=== PATIENT | female | born 1950 | race Caucasian/White ===

== ENCOUNTER → 2024-05-26 14:41 | Outpatient (REF) | payer MEDICARE, SELFPAY | LOC: HWRAD 14:41 | PROVIDERS: ATTENDING PHYSICIAN Student in an Organized Health Care Education/Training Program | DX: R53.1 Weakness (principal); R42 Dizziness and giddiness | CPT/HCPCS: 70450 ==

== ENCOUNTER 2024-05-28 17:33 | Inpatient (IN) | payer MEDICARE, SELFPAY ==
[2024-05-28] VITALS (9 sets, daily range): BP systolic 126–164; BP diastolic 55–121; BMI 25.6
[2024-05-28 14:24] LABS: % Basophils 0.5 % (0-2); % Eosinophils 5.5 % (0-6); % Immature Granulocytes 0.3 % (0-0.5); % Lymphocytes 26.3 % (20.5-51.1); % Monocytes 9.3 % (1.7-9.3); % Neutrophils 58.1 % (42.2-75.2); Absolute Eosinophils 0.4 10^3/uL (0-0.7); Absolute Lymphocytes 1.7 10^3/uL (1.2-3.4); Absolute Monocytes 0.6 10^3/uL (0.1-0.6); Absolute Neutrophils 3.8 10^3/uL (1.4-6.5); Hematocrit 46.4 % (37.0-47.0); Hemoglobin 15.2 g/dL (12.0-16.0); Mean Corp Hgb Conc. 32.8 g/dL (33.0-37.0); Mean Corpuscular Hgb 27.7 pg (27.0-31.0); Mean Corpuscular Volume 84.5 fL (81.0-99.0); Mean Platelet Volume 10.1 fL (7.4-10.4); Nucleated Red Blood Cells % 0 %; Platelet Count 225 10^3/uL (130-400); Red Blood Cell Count 5.49 10^6/uL (4.20-5.40); Red Cell Dist. Width 13.2 % (11.5-14.5); White Blood Cell Count 6.6 10^3/uL (4.8-10.8)
[2024-05-28 14:27] LABS: INR 0.87; PT 12.3 Sec (11.4-14.6)
[2024-05-28 14:54] LABS: Alkaline Phosphatase 73 U/L (38-126); Blood Urea Nitrogen 23 mg/dl (7-17); Calcium 10.2 mg/dl (8.4-10.2); Carbon Dioxide 28 mmol/L (22-30); Chloride 105 mmol/L (98-107); Estimated Creatinine Clearance 36 ml/min; Glucose 104 mg/dl (70-99); Potassium 4.5 mmol/L (3.5-5.1); Sodium 141 mmol/L (135-145); eGFR 53.06
[2024-05-28 14:55] LABS: ALT (SGPT) 13 U/L (0-35); AST (SGOT) 20 U/L (14-36); Albumin 4.6 g/dl (3.5-5.0); Total Bilirubin 0.6 mg/dl (0.2-1.3); Total Protein 7.1 g/dl (6.3-8.2)
--- NOTE | 2024-05-28 15:46 | ED.GENMED ---
History of Present Illness
General
Chief Complaint: Numbness
Time Seen by Provider: 05/28/24 13:48
History of Present Illness
History of Present Illness:
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 The patient notes that she had right arm weakness as
well as right leg weakness 5 days ago that resolved in under 24 hours. She followed up on Sunday with her primary care physician who sent her for outpatient CT scan of the head, which was unremarkable, as well as a carotid Doppler study. The
carotid Doppler revealed significant high-grade stenosis of the left common carotid as well as greater than 70% stenosis of the right mid internal carotid. She was then directed to come to the emergency department. Has not had any further right
sided extremity symptoms. No recent fevers or chills. She has been on baby aspirin since this event this weekend as recommended by her primary care physician but is not currently on anticoagulants or other antiplatelets.
Past History
Past History
ED Past Medical History: Hypothyroidism and Other (Patient has a history of oral pharyngeal tongue cancer. )
ED Past Surgical History: Other (Cancer surgery for tongue cancer. )
Review of Systems
Review of Systems
Allergies reviewed?: Yes
All Other Systems: ROS reviewed and negative except as documented in HPI and ROS
Phy Exam
Physical Exam
Physical Exam:
GEN: Well appearing, NAD, WDWN
HEENT: Oral mucosa moist, no scleral icterus, no nasal congestion. Deformity of the right mandible and proximal right neck consistent with prior major head and neck oncologic surgery
Cardiac: Regular rate
Lung: No respiratory distress, no tachypnea
MSK: No gross deformity or injuries
Skin: Good color, no pallor or jaundice, no rashes
Neuro: AO x3; CN II-XII grossly intact. BUE strength 5/5 in all freeman, sensation intact and symmetric. BLE strength 5/5 in all freeman, sensation intact and symmetric
Psych: Calm, cooperative
Course
Orders/Labs/Results
Orders:
Orders
05/28/24 14:08
Electrocardiogram (*1) Urgent
Reason for Study: TIA/Stroke
CT Head & Neck Angio W/wo IV Urgent
Comment:
Reason For Exam: carotid stenosis/TIA
EKG- Treatment ONCE
05/28/24 14:13
Complete Blood Count/With Diff Urgent
Comprehensive Metabolic Panel Urgent
Prothrombin Time Urgent
Abnormal Lab Results
05/28/24
14:13
RBC 5.49 H 10^6/uL
(4.20-5.40)
MCHC 32.8 L g/dL
(33.0-37.0)
BUN 23 H mg/dl
(7-17)
Creatinine 1.1 H mg/dL
(0.6-1.0)
Glucose 104 H mg/dl
(70-99)
05/28/24 14:13
05/28/24 14:13
Vital Signs
Initial and Last Documented VS:
Initial Vital Signs
Temp Pulse Resp BP Pulse Ox
97.6 F 72 16 139/85 98
05/28/24 13:29 05/28/24 13:29 05/28/24 13:29 05/28/24 13:29 05/28/24 13:29
Last Documented Vital Signs
Temp Pulse Resp BP Pulse Ox
97.6 F 76 13 127/55 94
05/28/24 13:29 05/28/24 15:00 05/28/24 15:00 05/28/24 15:00 05/28/24 15:00
MDM/Problems Addressed
MDM/Problems Addressed:
73-year-old female presents with outpatient study showing carotid stenosis and a previous TIA likely driven by this. She was sent for CT angiogram for further diagnostic clarity. Case was discussed with vascular surgery who will see the patient in
the ED as well as neurology, neurology recommends holding antiplatelets at this point pending inpatient MRI. Will be admitted to the hospitalist service
*Critical Care Note
Total Time (30-74mins, 75-104mins- exclusive of procedures): Not Applicable
ED Attending Note
-
Portions of this chart may have been created with voice recognition software.� Occasional wrong word or��sound alike� substitutions may have occurred due to the inherent limitations of voice recognition software.
Discharge Plan
Departure
Patient Disposition: Admit
Date of Disposition: 05/28/24
Time of Disposition: 16:35
Admit to: Med/Surg
Presentation/result/management discussed w/ accepting MD/DO: Hospitalist
Discharge Problem:
Transient ischemic attack (TIA), Carotid artery stenosis
Prescriptions:
No Action
levothyroxine 100 MCG tablet
100 mcg PO DAILY
Referrals:
UNKNOWN - PT DOES,NOT KNOW [Family Provider] -
Interventions
Interventions:
*Risk Screen - Suicide Last Done: 05/28/24 13:59
*General Assessment Last Done: 05/28/24 13:59
*Neglect/Abuse Screening Last Done: 05/28/24 13:59
*ED- Fall Risk Assessment Last Done: 05/28/24 13:59
*ED COVID-19 Vaccine History Last Done: 05/28/24 13:59
ED- Neurological Assessment Last Done: 05/28/24 14:07
Discharge Date and Time
Print Language: PASHTO
--- NOTE | 2024-05-28 16:46 | HPS.HSE ---
Family Physician
-
Family Physician: NOT KNOW UNKNOWN - PT DOES
Chief Complaint
-
abnormal out patient testing
History of Present Illness
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 The
patient notes that she had right arm weakness as well as right leg weakness 5 days ago that resolved in under 24 hours. She followed up on Sunday with her primary care physician who sent her for outpatient CT scan of the head, which was
unremarkable, as well as a carotid Doppler study. The carotid Doppler revealed significant high-grade stenosis of the left common carotid as well as greater than 70% stenosis of the right mid internal carotid. She was then directed to come to the
emergency department. Has not had any further right sided extremity symptoms. No recent fevers or chills. She has been on baby aspirin since this event this weekend as recommended by her primary care physician but is not currently on
anticoagulants or other antiplatelets.
Medical History
Past Medical History
Past Medical History: Reports Other
Additional Past Medical History:
CKD IIIb
hypothyroidism
hypercholesterolemia
DM II
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
Past Surgical History: Reports Other
Additional Past Surgical History:
cholecystectomy
resection and partial of tongue
repeat neck surgery due to carcinoma with neck dissection
total thyroidectomy
jaw surgery- right side to remove tumor 06/08/2020
Social History
Tobacco: Smoker (approximately 8 cigarettes per day, has been smoking on and off for 55 years )
Alcohol: None
Drug: None
Personal:
Living: With Family
Employment: Retired
Family History
Family History: Not pertinent
Allergies / Home Medications
Allergies reflects when Allergies were last updated in [employer].
Home Medications with original date entered in [employer]
Allergy/Medication List:
Allergies
Allergy/AdvReac Type Severity Reaction Status Date / Time
penicillin V [Penicillin V] Allergy Swelling Verified 05/28/24 13:33
Home Medications
aspirin 81 mg chewable tablet 81 mg PO DAILY 05/28/24
levothyroxine 137 mcg tablet 137 mcg PO DAILY 05/28/24
Review of Systems
-
History Source: Patient
Constitutional: Reports No Symptoms
EENT: Reports No Symptoms
Respiratory: Reports No Symptoms
Cardiac: Reports No Symptoms
Abdomen/GI: Reports No Symptoms
: Reports No Symptoms
Musculoskeletal: Reports No Symptoms
Skin: Reports No Symptoms
Neurological: Reports No Symptoms
Endocrine: Reports No Symptoms
Hematologic/Lymphatic: Reports No Symptoms
Psych: Reports No Symptoms
Physical Exam
Vital Signs
Vital Signs
Temp Pulse Resp BP Pulse Ox
97.6 F 76 13 127/55 94
05/28/24 13:29 05/28/24 15:00 05/28/24 15:00 05/28/24 15:00 05/28/24 15:00
Physical Exam
General: Well Developed, Well Nourished, No Apparent Distress, Comfortable and Conversant
HEENT: NormoCephalic, Moist mucous membranes, Atraumatic, [place] Conjunctivae, Nose Appears Normal and Ears Appear Normal
Respiratory: Clear
Cardiac: S1/S2 and Regular Rhythm
Breast: Deferred by me
GI: Soft, Non Tender, Non Distended and Normal Bowel Sounds; No Organomegaly
Rectal: Deferred by Provider
Genito-urinary: Deferred by me
Musculoskeletal: No Clubbing, No Cyanosis and No Edema
Skin: IV/Catheter Site
Neuro: Awake, Alert, AO x 3 and Nonfocal/grossly intact
Psych: Calm and Intact Judgment/Insight
Laboratory Results
-
05/28/24 14:13
05/28/24 14:13
Laboratory Results
PT 12.3 Sec (11.4-14.6) 05/28/24 14:13
INR 0.87 05/28/24 14:13
Total Bilirubin 0.6 mg/dl (0.2-1.3) 05/28/24 14:13
AST 20 U/L (14-36) 05/28/24 14:13
ALT 13 U/L (0-35) 05/28/24 14:13
Alkaline Phosphatase 73 U/L (38-126) 05/28/24 14:13
Data Reviewed
-
CT Scan: Report Reviewed by me (Head/Neck CTA: see report )
Ultrasound: Report Reviewed by me (Carotid US: see report )
Medical Tests (Nuc Med, Echo, EKG etc): Report Reviewed by me (EKG: NORMAL SINUS RHYTHM CANNOT RULE OUT ANTERIOR INFARCT , AGE UNDETERMINED)
Lab Data: Labs Reviewed by me (BUN 23, Creat 1.1)
Impression/Plan
-
IMPRESSION/PLAN:
#high-grade stenosis of the left common carotid
#TIA
right sided weakness 4 days ago, resolved spontaneously within 24 hours
Carotid US: RIGHT: Plaque is identified in the common carotid artery, carotid bulb and internal carotid artery. Carotid velocity measurements are consistent with greater than 70% stenosis in the mid internal
carotid artery. Vertebral artery flow is antegrade.
LEFT: Plaque is identified in the common carotid artery and internal carotid artery. Significant peak systolic and end diastolic velocity measurements in the mid common carotid artery consistent
with high-grade stenosis. Vertebral artery flow is antegrade.
Communicated with the fire protection equipment technician performing the examination and the patient was sent to the emergency room for evaluation given ongoing symptoms that warranted the carotid duplex examination.
Head/Neck CTA: CT Brain: No acute intracranial process. Specifically, no evidence of acute hemorrhage. Unchanged small foci of encephalization within the bilateral occipital lobes and right parietal lobe.
CTA Head: No significant arterial stenosis. There is a 2 mm anteriorly directed outpouching along the distal aspect of the right middle cerebral artery, just proximal to the bifurcation, likely a small aneurysm.
CTA Neck: There is predominantly noncalcified atherosclerotic plaque of the bilateral common carotid arteries with resultant moderate stenosis of the right mid common carotid artery.
There is focal high-grade stenosis within the mid left common carotid artery which may be secondary to noncalcified atherosclerotic plaque or chronic thrombus.
There is stenosis of the proximal right common carotid artery secondary to noncalcified atherosclerotic plaque with resultant 75% stenosis by NASCET criteria.
Predominantly noncalcified plaque of the left carotid bifurcation extending into the proximal left internal carotid artery with approximately 50% stenosis by NASCET criteria.
Extensive postoperative changes of the mandible/neck.
There is diffuse bronchial wall thickening which likely represents bronchitis/bronchiolitis.
- Admit to telemetry
- Consult Vascular
- Consult Neuro
- Consult ENT to evaluate vocal cord functioning as requested by Vascular prior to OR
- MRI for morning
- NPO after midnight
#CKD IIIb
BUN 23, Creat 1.1
- monitor BMP
#hypothyroidism
- continue levothyroxine
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
s/p surgery, radiation and chemo >10 years ago
#hypercholesterolemia
#DM II
Code status: full code
DVT prophylaxis: SCDs
--- NOTE | 2024-05-28 16:59 | CON.VAS ---
Consultation
Consultation Request
Performing Provider: Emil
Reason for Consultation: Carotid artery stenosis
Medical History
-
Chief Complaint: Right arm numbness/left leg heaviness
History of Present Illness:
73-year-old female, active smoker about a half a pack a day. History of right sided neck malignancy (oral pharyngeal cancer). Had initially undergone resection years ago with concomitant right neck radiation. Subsequently in 2020 had recurrence
and underwent repeated excision and fibular free flap. This was done at [facility]. She now had an episode 4 days ago of right arm and right leg numbness and heaviness of her right leg. She felt she had to drag her leg. The
symptoms persisted for 2 days and then abated. She now notes no symptoms. No other strokelike or TIA symptoms. No amaurosis, no speech dysarthria. She is right-hand dominant. No prior history of strokes.
On exam/she is awake and alert. She is in no acute distress. Her right neck tissues do appear radiated. She has scar tissue in the right neck and in the submandibular region from her free flap procedure. Left neck appears relatively more normal
without clear-cut radiation changes. No scar tissue except in the submandibular region there is a portion of a scar that carries over from the other side for the free flap procedure. Neurologically currently she moves all extremities. 2+ palpable
upper extremity radial and bilateral lower extremity dorsalis pedis pulses.
Duplex reviewed. Severe common carotid artery stenosis with peak systolic velocity over 500 cm/s and end-diastolic velocity over 200 cm/s.
CT angiogram images reviewed. She has a severe common carotid artery (mid neck) stenosis with irregular appearing soft plaque/thrombus laden plaque. Carotid bifurcation on the left side demonstrates some plaque but likely resultant less than 50%
stenosis to my interpretation. Right proximal internal carotid artery has likely at least moderate to high-grade stenosis but relatively smooth stenosis.
Past Medical History
Past Medical History: Cancer (oral pharyngeal tongue cancer status post tumor resection x 2)
Past Surgical History: Other (Right jaw tumor resection with radiation and chemo 'many years ago', right jaw tumor resection in 2020 no chemo or radiation)
Social History
Tobacco: Smoker
Personal:
Living: With Family
Family History
Family History: Reviewed & Not Pertinent
Allergies / Home Medications
Allergy/AdvReac Type Severity Reaction Status Date / Time
penicillin V [Penicillin V] Allergy Swelling Verified 05/28/24 13:33
�Medication �Instructions �Recorded �Confirmed �Type
aspirin 81 mg chewable tablet 81 mg PO DAILY 05/28/24 05/28/24 History
levothyroxine 137 mcg tablet 137 mcg PO DAILY 05/28/24 05/28/24 History
Review of Systems
-
History Source: Patient
All other systems: Negative unless noted
Constitutional: Reports No Symptoms
EENT: Reports No Symptoms
Respiratory: Reports No Symptoms
Cardiac: Reports No Symptoms
Vascular: Denies Leg Pain / Claudication
Abdomen/GI: Reports No Symptoms
: Reports No Symptoms
Musculoskeletal: Reports No Symptoms
Skin: Reports No Symptoms
Neurological: Reports Weakness (Resolved at this time)
Physical Exam
Vital Signs
Temp Pulse Resp BP Pulse Ox
97.6 F 76 13 127/55 94
05/28/24 13:29 05/28/24 15:00 05/28/24 15:00 05/28/24 15:00 05/28/24 15:00
Lab Results
05/28/24 14:13
05/28/24 14:13
Physical Exam
General: No Apparent Distress
HEENT: Normocephalic and Atraumatic
Respiratory: Non Labored Respirations
Cardiac: Negative JVD
GI: Soft and Non Tender
Musculoskeletal: No Clubbing, No Cyanosis and No Edema
Skin: Warm
Neuro: Awake, Alert, Oriented and Nonfocal/Grossly Intact
Psych: Calm
Assessment / Plan
-
Symptomatic left common carotid artery stenosis
Plan:
-Admit to hospitalist
-Neuro consult
-ENT consult
-MRI brain
-N.p.o. after midnight
-OR tomorrow for CEA
Data Reviewed
-
CT Scan: Discussed with Patient
Ultrasound: Discussed with Patient
Labs: Labs Reviewed by me
--- NOTE | 2024-05-28 17:03 | W.PN.UPDATE ---
Update Note
Progress Note Update
Seen and examined in the emergency room. Seen with VEL Aguilar. Full consultation to follow. Briefly 73-year-old female, active smoker about a half a pack a day. History of right sided neck malignancy (oral pharyngeal cancer). Had initially
undergone resection years ago with concomitant right neck radiation. Subsequently in 2020 had recurrence and underwent repeated excision and fibular free flap. This was done at [facility]. She now had an episode 4 days ago of
right arm and right leg numbness and heaviness of her right leg. She felt she had to drag her leg. The symptoms persisted for 2 days and then abated. She now notes no symptoms. No other strokelike or TIA symptoms. No amaurosis, no speech
dysarthria. She is right-hand dominant. No prior history of strokes.
On exam/she is awake and alert. She is in no acute distress. Her right neck tissues do appear radiated. She has scar tissue in the right neck and in the submandibular region from her free flap procedure. Left neck appears relatively more normal
without clear-cut radiation changes. No scar tissue except in the submandibular region there is a portion of a scar that carries over from the other side for the free flap procedure. Neurologically currently she moves all extremities. 2+ palpable
upper extremity radial and bilateral lower extremity dorsalis pedis pulses.
Duplex reviewed. Severe common carotid artery stenosis with peak systolic velocity over 500 cm/s and end-diastolic velocity over 200 cm/s.
CT angiogram images reviewed. She has a severe common carotid artery (mid neck) stenosis with irregular appearing soft plaque/thrombus laden plaque. Carotid bifurcation on the left side demonstrates some plaque but likely resultant less than 50%
stenosis to my interpretation. Right proximal internal carotid artery has likely at least moderate to high-grade stenosis but relatively smooth stenosis.
Plan/ Symptomatic left common carotid artery stenosis. Discussed extensively this finding with the patient. I ramakrishna diagrams to facilitate understanding. Discussed my recommendation for revascularization for stroke prevention. Discussed the
nature of this plaque and very concerning appearance of the stenosis/plaque. Discussed significant risk of stroke without intervention. Discussed revascularization strategies including carotid surgery versus stenting. Generally would favor
endarterectomy with soft potentially hemorrhagic plaque as it appears on the CT scan. However, I have concern in a prior radiated neck as well as prior surgical neck. However, her radiation and surgery did not appear to extend into the left neck.
Therefore based on all this I would still favor left common carotid endarterectomy. Would favor leaving the internal carotid artery/bifurcation as is given no severe stenosis and her increased risk of procedure given her prior neck history. I did
discuss also with her that I do not know the status of her right vocal cord and if there is issues there, if she has surgery she may be at slight risk for vagal injury. If vagal injury occurs in the left vagus in the setting of a paralyzed right
vocal cord, she has significant risk of inability to move air and potentially needing urgent tracheostomy. She does have a history of a prior tracheostomy which would complicate that as well. I discussed other risks of carotid revascularization
namely carotid endarterectomy including but not limited to bleeding, infection, cardiac complication/SD, cranial nerve injury, stroke (in the symptomatic setting at least 2 to 3%). She understands all wishes to proceed with left common carotid
endarterectomy. Possible stenting if felt to be too heavily scarred or if nerve injury risk is too high. (If there is a concomitant right sided vocal cord issue). I have asked ENT attending Dr. Pastor to evaluate for vocal cord functioning so that
we can know this before surgery. Would also recommend neurology evaluation, and consideration for MRI of the brain. Will plan surgery tomorrow assuming all these things check out.
--- NOTE | 2024-05-28 17:21 | CON.MD ---
Consultation - Medical
-
dictated.
Both vocal cords fully mobile.
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
--- NOTE | 2024-05-28 17:24 | W.PN.UPDATE ---
Update Note
Progress Note Update
I saw and examined the patient.
The [employer] Tyler note was reviewed and I agree with the note.
Comment: 73 y/o F, hx of salivary gland cancer with head/neck surgery/radiation previously presents to ER for abnormal carotid US study. She reports R arm weakness and R leg weakness 5 days ago that resolved in 24 hours. Carotid shoed L common
carotid high grade stenosis. CTA in ER confirmed high grade stenosis in mid left common carotid. Vascular evaluated and recommended MRI With Neuro eval and also ENT eval. Tentative plan for OR tomorrow.
Exam:
GEN: Well appearing, NAD, WDWN
HEENT: Oral mucosa moist, no scleral icterus, no nasal congestion. Deformity of the right mandible and proximal right neck consistent with prior major head and neck oncologic surgery
Cardiac: Regular rate
Lung: No respiratory distress, no tachypnea
MSK: No gross deformity or injuries
Skin: Good color, no pallor or jaundice, no rashes
Neuro: AO x3; CN II-XII grossly intact. BUE strength 5/5 in all freeman, sensation intact and symmetric. BLE strength 5/5 in all freeman, sensation intact and symmetric
Psych: Calm, cooperative
Plan: ENT evaluated given prior head/neck surgery and radiation, also prior hx of trach. Neuro evaluation and MRI brain. hold off DAPT at this time. Vascular consulted; NPO p MN for carotid endarterectomy. Pre-op risk assessment: EKG with NSR. No
cardiopulmonary complaints. low to intermediate risk. No additional testing indicated.
[2024-05-28 21:13] LABS: HDL Cholesterol 60 mg/dl; LDL Cholesterol, Calculated 115 mg/dl; Total Cholesterol 201 mg/dl (50-199); Triglyceride 133 mg/dl (10-149); Very Low Density Lipoprotein 26 mg/dl (0-30)
[2024-05-29] VITALS (12 sets, daily range): BP systolic 86–165; BP diastolic 42–79; BMI 24.1; BMI 24.6
[2024-05-29] MEDS: SYNTHROID PO (05:36)
--- NOTE | 2024-05-29 05:36 | PTCARENOTE ---
Patient received from ED via stretcher. Patient ambulated well independently to bed. Personal cane at bedside, patient reports she only needs cane for long distances. Pre-Op teaching provided to patient along with POC. Patient denies any symptoms at
this time. Call choudhary reviewed with patient and placed with in reach. Care ongoing, will continue to monitor.
[2024-05-29] MEDS: PERIDEX 0.12% ORAL RINSE 15 ML PO (06:03)
[2024-05-29] MEDS: BACTROBAN 2% OINTMENT 1 APPLIC NASAL (06:03)
[2024-05-29 06:52] LABS: Hematocrit 45.1 % (37.0-47.0); Hemoglobin 14.7 g/dL (12.0-16.0); Mean Corp Hgb Conc. 32.6 g/dL (33.0-37.0); Mean Corpuscular Hgb 27.7 pg (27.0-31.0); Mean Corpuscular Volume 84.9 fL (81.0-99.0); Platelet Count 195 10^3/uL (130-400); Red Blood Cell Count 5.31 10^6/uL (4.20-5.40); Red Cell Dist. Width 13.1 % (11.5-14.5); White Blood Cell Count 5.9 10^3/uL (4.8-10.8)
[2024-05-29 07:22] LABS: Blood Urea Nitrogen 19 mg/dl (7-17); Calcium 9.8 mg/dl (8.4-10.2); Carbon Dioxide 29 mmol/L (22-30); Chloride 103 mmol/L (98-107); Estimated Creatinine Clearance 38 ml/min; Glucose 115 mg/dl (70-99); HDL Cholesterol 49 mg/dl; LDL Cholesterol, Calculated 106 mg/dl; Potassium 4.4 mmol/L (3.5-5.1); Sodium 142 mmol/L (135-145); Total Cholesterol 181 mg/dl (50-199); Triglyceride 131 mg/dl (10-149); Very Low Density Lipoprotein 26 mg/dl (0-30); eGFR 53.06
[2024-05-29] MEDS: LOW STRENGTH ASPIRIN 81 MG PO (08:12)
--- NOTE | 2024-05-29 08:55 | CON.NEURO ---
Consultation
Order
Date of Consultation: 05/29/24
Requesting Provider: Florentino Vasquez PA-C
Reason for Consult: TIA
Neurology Consultation Note.
HPI: This is a 73-year-old ambidextrous woman who presented to [facility] on 05/28/2024 with transient hemiparesis. According to the patient she woke up on 05/24/2024 with right arm and leg weakness. The symptoms improved gradually,
with the patient feeling better by Sunday and significantly improved by Sunday. The patient initially decided not to seek immediate medical attention, hoping the symptoms would resolve spontaneously. However, as concerns grew, she scheduled a
doctor's appointment for Sunday.
ER VS: 139/85, 72, afebrile
EKG: NSR, QTc Int : 416 ms
PDMP: none
Labs: Normal sodium, WBC, platelets, creatinine�1.1,
CT head (05/26/2024)-mild occipital hypodensities, right greater than left
Carotid Doppler ultrasound (05/28/2024) bilateral high-grade ICA stenosis
CTA head/lxof-brst-svnbw stenosis within the L CCA from plaque vs chronic thrombus.
R CCA 75% stenosis
Review of vital signs was notable for hypotension down to 86/64 at 7:00 AM today
LDL�106
PMH: Oropharyngeal carcinoma (s/p chemo, RT), hypothyroidism, diverticulosis
PSH: Anterior neck dissection
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
FH:
All: Penicillin
ROS: Constitutional: Negative. Negative for chills, fever and unexpected weight change.
HENT: Negative for ear pain, hearing loss, tinnitus and trouble swallowing.
Eyes: Negative. Negative for photophobia, pain and visual disturbance.
Respiratory: Negative for cough, choking and shortness of breath.
Cardiovascular: Negative for chest pain, palpitations and leg swelling.
Gastrointestinal: Negative for abdominal pain and vomiting.
Endocrine: Negative. Negative for cold intolerance.
Genitourinary: Negative for dysuria, flank pain and urgency.
Musculoskeletal: Negative for back pain, gait problem, neck pain and neck stiffness.
Skin: Negative for rash.
Allergic/Immunologic: Negative. Negative for immunocompromised state.
Neurological: Positive for transient right-sided weakness
Psychiatric/Behavioral: Negative for behavioral problems, confusion and hallucinations.
General: Well developed. In no acute distress.
Cardio: Regular rate and rhythm without murmur. Extremities are without cyanosis or edema.
Neuro:
Mental Status: Alert, oriented to person, place, and date. Normal attention and recall. Good fund of knowledge. Follows complex requests across the midline. Comprehension, naming, and repetition intact.
Cranial Nerves: Pupils are equally round and reactive to light. EOMs full. Visual freeman full to confrontation. No ptosis. No nystagmus. V1-V3 intact to light touch and pinprick bilaterally, symmetric. Face symmetric. Normal hearing AU. The
palate elevated well. SCMs and traps 5/5. Tongue midline. Mild dysarthria (chronic).
Motor: Normal bulk and tone. No pronator or arm drift. Strength 5/5 throughout. No clonus.
Reflexes: 2+ throughout the upper extremities and knees. Plantar responses flexor bilaterally.
Sensory: Normal vibration at the toes
Coordination: No dysmetria or tremor.
Gait: deferred
Assessment and Plan:
I. Acute/subacute small left MCA territory stroke. Likely etiology�embolic
II. Symptomatic left CCA stenosis
III. Severe right CCA stenosis
IV. Chiari I malformation.
V. 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
-Avoid cerebral hypoperfusion
-Continue aspirin 81 mg once a day
-Lipitor 40 mg nightly
-Vascular surgery follow-up
-TTE/ILR given chronic right ED SPECIAL EDUCATION TEACHER infarct.
-Will follow-up
I personally reviewed all radiology and labs along with past medical records pertinent to current medical problems. Total time spent in patient care is 60 minutes.
Thank you for allowing us to participate in the care of this patient. We will continue to follow. Please do not hesitate to contact us with any questions or concerns.
Subjective/Objective
Subjective Data
Date of Service: May 29, 2024
Objective Data
Vital Signs
Temp Pulse Resp BP Pulse Ox
36.5 C 67 16 88/42 96
05/29/24 07:00 05/29/24 07:00 05/29/24 07:00 05/29/24 08:28 05/29/24 07:30
Lab Results
05/29/24 06:25
05/29/24 06:25
PT 12.3 Sec (11.4-14.6) 05/28/24 14:13
INR 0.87 05/28/24 14:13
Sodium 142 mmol/L (135-145) 05/29/24 06:25
Potassium 4.4 mmol/L (3.5-5.1) 05/29/24 06:25
BUN 19 mg/dl (7-17) H 05/29/24 06:25
Glucose 115 mg/dl (70-99) H 05/29/24 06:25
Calcium 9.8 mg/dl (8.4-10.2) 05/29/24 06:25
LDL Cholesterol, Calc 106 mg/dl 05/29/24 06:25
Patient Allergies
penicillin V [Penicillin V] Allergy (Verified 05/28/24 13:33)
Swelling
Medications
-
Active Medications
Generic Name Dose Route Start Last Admin
Trade Name Freq PRN Reason Stop Dose Admin
Acetaminophen 650 mg 05/28/24 19:29
Acetaminophen 325 Mg Tablet PO 06/25/24 19:28
Q4HPRN PRN
mild pain/TOSCANO/temp> 100.4F
Aspirin 81 mg 05/29/24 08:00 05/29/24 08:12
Aspirin 81 Mg Chewable Tablet PO 06/26/24 07:59 81 mg
DAILY JUSTUS Administration
Levothyroxine Sodium 137 mcg 05/29/24 06:00 05/29/24 05:36
Levothyroxine 137 Mcg Tablet PO 06/26/24 05:59 Not Given
DAILY@0600 JUSTUS
Sodium Chloride 0 flush 05/28/24 19:00
Sodium Chloride 0.9% (Flush) Syringe IV 06/25/24 18:59
PER PROTOCOL JUSTUS
Home Medications
�Medication �Instructions �Recorded
aspirin 81 mg chewable tablet 81 mg PO DAILY 05/28/24
levothyroxine 137 mcg tablet 137 mcg PO DAILY 05/28/24
Vital Signs and Labs
-
Vital Signs and Labs:
Vital Signs
Temp Pulse Resp BP Pulse Ox
36.5 C 67 16 88/42 96
05/29/24 07:00 05/29/24 07:00 05/29/24 07:00 05/29/24 08:28 05/29/24 07:30
Lab Results
05/29/24 06:25
05/29/24 06:25
PT 12.3 Sec (11.4-14.6) 05/28/24 14:13
INR 0.87 05/28/24 14:13
Sodium 142 mmol/L (135-145) 05/29/24 06:25
Potassium 4.4 mmol/L (3.5-5.1) 05/29/24 06:25
BUN 19 mg/dl (7-17) H 05/29/24 06:25
Glucose 115 mg/dl (70-99) H 05/29/24 06:25
Calcium 9.8 mg/dl (8.4-10.2) 05/29/24 06:25
LDL Cholesterol, Calc 106 mg/dl 05/29/24 06:25
Medications
-
Medications:
Generic Name Dose Route Start Last Admin
Trade Name Freq PRN Reason Stop Dose Admin
Acetaminophen 650 mg 05/28/24 19:29
Acetaminophen 325 Mg Tablet PO 06/25/24 19:28
Q4HPRN PRN
mild pain/TOSCANO/temp> 100.4F
Aspirin 81 mg 05/29/24 08:00 05/29/24 08:12
Aspirin 81 Mg Chewable Tablet PO 06/26/24 07:59 81 mg
DAILY JUSTUS Administration
Levothyroxine Sodium 137 mcg 05/29/24 06:00 05/29/24 05:36
Levothyroxine 137 Mcg Tablet PO 06/26/24 05:59 Not Given
DAILY@0600 [facility]
Sodium Chloride 0 flush 05/28/24 19:00
Sodium Chloride 0.9% (Flush) Syringe IV 06/25/24 18:59
PER PROTOCOL JUSTUS
Home Medications
-
Home Medications
aspirin 81 mg chewable tablet 81 mg PO DAILY 05/28/24
levothyroxine 137 mcg tablet 137 mcg PO DAILY 05/28/24
--- NOTE | 2024-05-29 09:04 | W.PN.UPDATE ---
Update Note
Progress Note Update
Seen and examined by me independently in collaboration with the medical sales representative.
Lab data and imaging data reviewed.
Addendum as below :
Patient had right-sided weakness involving the upper and lower extremity on last Sunday which resolved by Sunday. She had a outpatient workup which included a CT scan and a carotid ultrasound which raise the concern for left carotid stenosis and
referred to hospital for further evaluation.
Reviewed by vascular who recommends a left CEA.
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
Await neurology input. MRI of the brain shows small acute infarcts in the left frontal lobe, parietal lobe and chronic infarct in the right frontal, right occipital and right parietal lobe.
Her risk factor apart from radiation to the neck is smoking which advised strongly to quit. No history of diabetes, hypertension and hyperlipidemia.
Check lipid panel.
Patient already on aspirin. Consider Plavix with intracranial atherosclerosis.
Follow blood pressure in house. She is on telemetry-sinus rhythm.
Preop cardiac clearance-patient without prior history of heart disease. No CHD risk equivalents. Exercise tolerance more than 4 METS. EKG in sinus rhythm with no acute ST-T changes. Patient is at a low risk for cardiovascular events for proposed
surgery. Will proceed with surgery as planned.
Bilateral arm blood pressure discrepancy with a higher number in the left arm. Right radial artery is weak. Asymptomatic in the right arm. CTA noted. Suspect small caliber right subclavian artery. Will review with vascular surgery. Obtain old
blood pressure reading in the left arm.
Current smoker-strongly advised to quit smoking.
Discussed with vascular surgery nd neurology today.
Total time spent on today's encounter was 52 minutes which included time spent in counseling the patient/family regarding diagnosis and treatment plan as listed above, goals of care, and symptom management. Case was discussed with nursing staff,
specialists, and care coordinators/case management. All labs and imaging personally reviewed by me. Remainder the time spent in detailed review of previous records, lab data, imaging, and other medical provider documentation.
--- NOTE | 2024-05-29 09:28 | W.SUR.PREOP ---
Pre-Operative Surgical Note
-
I have examined this patient prior to the performance of the scheduled procedure.
The patient's condition is unchanged from the time of the current History and
Physical and the patient is able to undergo the scheduled procedure.
[2024-05-29] MEDS: VANCOCIN 1 GRAM IV (09:41)
--- NOTE | 2024-05-29 09:44 | W.PN.UPDATE ---
Update Note
Progress Note Update
Note MRI report reviewed. Small infarcts confirmed left hemisphere. Plan will be to proceed as originally planned with revascularization (per neurology no contraindication to proceeding).
--- NOTE | 2024-05-29 11:47 | W.PN.HOSP.TC ---
Today's Communication/Plan
-
CEA today
Assessment / Plan
Assessment / Plan
Acute left-sided cerebral ischemic infarct-
patient had right-sided weakness involving the upper and lower extremity on last Sunday which resolved by Sunday. She had a outpatient workup which included a CT scan and a carotid ultrasound which raise the concern for left carotid stenosis and
referred to hospital for further evaluation.
Reviewed by vascular who recommends a left CEA.
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
Await neurology input. MRI of the brain shows small acute infarcts in the left frontal lobe, parietal lobe and chronic infarct in the right frontal, right occipital and right parietal lobe.
Her risk factor apart from radiation to the neck is smoking which advised strongly to quit. No history of diabetes, hypertension and hyperlipidemia.
Check lipid panel.
Patient already on aspirin. Consider Plavix with intracranial atherosclerosis.
Follow blood pressure in house. She is on telemetry-sinus rhythm.
Left carotid stenosis -for CEA today
Preop cardiac clearance-patient without prior history of heart disease. No CHD risk equivalents. Exercise tolerance more than 4 METS. EKG in sinus rhythm with no acute ST-T changes. Patient is at a low risk for cardiovascular events for proposed
surgery. Will proceed with surgery as planned.
Bilateral arm blood pressure discrepancy with a higher number in the left arm. Right radial artery is weak. Asymptomatic in the right arm. CTA noted. Small caliber right subclavian artery noted on CT . Will review with vascular surgery. Obtain
old blood pressure reading in the left arm.
Current smoker-strongly advised to quit smoking.
Hypothyrodism -cw Synthroid
Anticipated Discharge: 24 - 48 hours
Subjective/Interval History
-
Date of Service: May 29, 2024
No recurrence of neurological symptoms.
Denies any right-sided weakness today.
No headache, visual symptoms or speech disturbances.
Denies any palpitations.
Objective Data
-
Labs:
Laboratory Results
05/29/24
06:25
WBC 5.9
Hgb 14.7
Hct 45.1
Plt Count 195
Sodium 142
Potassium 4.4
Chloride 103
Carbon Dioxide 29
BUN 19 H
Creatinine 1.1 H
Glucose 115 H
Calcium 9.8
Vital Signs:
Vital Signs
Temp Pulse Resp BP Pulse Ox
97.7 F 67 16 88/42 96
05/29/24 07:00 05/29/24 07:00 05/29/24 07:00 05/29/24 08:28 05/29/24 07:30
Review of Systems
-
Respiratory: Denies Trouble Breathing
Cardiac: Denies Chest Pain
Abdomen/GI: Denies Abdominal Pain, Nausea or Vomiting
Neuro: Denies Dizzy
Physical Exam
-
General: No Apparent Distress
HEENT: Moist Mucous Membranes and Other (Skin changes from prior surgery and radiation noted on on her neck )
Respiratory: Clear to Auscultation and Non Labored Respirations; Negative Accessory Resp Muscle Use
Cardiac: Regular Rhythm and S1/S2; Negative Murmur
Neuro: AO x 3 and No Motor Deficits; Negative Tremors, Slurred Speech or Facial Droop
Psych: Calm; Negative Confused
Data Reviewed
-
MRI: Report Reviewed by me (Brain)
Labs: Labs Reviewed by me
--- NOTE | 2024-05-29 12:09 | W.SUR.POST ---
Surgical Immediate Post Op
Note
Pre Op Diagnosis: Symptomatic left carotid stenosis
Post Op Diagnosis: Symptomatic left carotid stenosis
Procedure Performed: Left carotid endarterectomy with bovine pericardial patch angioplasty and EEG monitoring
Primary Surgeon: Stephon Stein MD
account assistant: RUTH Zuñiga
Anesthesia: GETA
Estimated Blood Loss: 15 mL
Fluids: See anesthesia flowsheet
Drains/Shunts: N/A
Specimens/Cultures: Left carotid plaque
Doppler/Duplex/Angio (Y/N): Y
Complications: None
Operative Findings: Successful endarterectomy of left carotid plaque, upon awakening from anesthesia patient was able to move bilateral upper extremities and lower extremities spontaneously and to command
[2024-05-29 12:34] LABS: Glucose - Point of Care 155 mg/dl (70-99)
[2024-05-29 13:08] LABS: Hemoglobin 13.8 g/dL (12.0-16.0); Mean Corp Hgb Conc. 32.9 g/dL (33.0-37.0); Mean Corpuscular Hgb 28.1 pg (27.0-31.0); Mean Corpuscular Volume 85.5 fL (81.0-99.0); Mean Platelet Volume 10.2 fL (7.4-10.4); Platelet Count 202 10^3/uL (130-400); Red Blood Cell Count 4.91 10^6/uL (4.20-5.40); Red Cell Dist. Width 13.2 % (11.5-14.5); White Blood Cell Count 7.3 10^3/uL (4.8-10.8)
[2024-05-29 13:17] LABS: Blood Urea Nitrogen 19 mg/dl (7-17); Calcium 8.9 mg/dl (8.4-10.2); Carbon Dioxide 25 mmol/L (22-30); Chloride 107 mmol/L (98-107); Estimated Creatinine Clearance 41 ml/min; Glucose 153 mg/dl (70-99); Potassium 4.8 mmol/L (3.5-5.1); Sodium 138 mmol/L (135-145); eGFR 59.49
--- NOTE | 2024-05-29 13:42 | CON.INTV ---
Addendum entered and electronically signed by Reymundo Chang MD 05/29/24 14:06:
Note prematurely signed prior to completion
History obtained from the chart and from the patient. Patient is a pleasant 73-year-old female history of head and neck cancer status post with radiation therapy, hypothyroidism, chronic kidney disease presents with right arm and right leg weakness
5 days prior to presentation. Patient outpatient head CT and carotid studies which showed high-grade left carotid stenosis. Was instructed to come to ED, symptoms resolved. Patient started on outpatient aspirin. CT angiogram showed severe,
carotid artery stenosis with irregular appearing soft plaque and thrombus. Patient was also seen by ENT at request of vascular surgery. No evidence of recurrence per ENT evaluation. Patient is now status post left carotid endarterectomy with
angioplasty and EEG monitoring. Postprocedure, neurological exam nonfocal. Patient admitted to ICU. Upon arrival, systolic pressure 188 via left upper extremity A-line. Patient without shortness of breath, nausea, abdominal pain. Has mild
headache, rates it 1/10, describes as minimal.
.
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 History of chronic kidney disease, hypercholesterolemia, hypothyroidism, total thyroidectomy
SH: Likely 30+ pack-year history of smoking continues to smoke 8 cigarettes a day but plans to quit. Denies alcohol use. Retired. lives with family
FH: Negative for lung cancer, blood clots
Allergies include penicillin.
Review of systems per HPI
Physical exam
Comfortable appearing lying flat. Left carotid incision intact with mild superior swelling
Chest exam is clear. Chronic radiation changes with post surgical changes right mandibular/neck area
Cardiac exam regular rate rhythm no murmurs rubs On Exam Soft Nontender Nondistended Extremities No Clubbing Cyanosis or Edema
Muscle strength 5 out of 5 throughout, cranial nerves grossly intact although cannot assess tongue deviation as chronically deviates of the right, postsurgical
Data reviewed
Hemoglobin 13.8, normal creatinine, glucose 153
EKG 4/2 normal sinus rhythm
Brain MRI with acute left-sided cerebral ischemic infarct
Assessment
S/p LCEA/3
Recent left-sided cerebral ischemic infarct with right-sided weakness, subsequently resolved
Prior neck surgery/radiation with right mandibular resection
Conditions present prior to admission
Hypertension/hyperlipidemia
Hypothyroidism history of thyroidectomy
30+ pack years of smoking, ongoing
Cachexia
Plan
At this time, patient is critically ill but appears stable. Elevated systolic pressure in the 180s 190s noted via A-line
Patient without symptoms. Describes minimal headache, 03/07, improving
Otherwise without complaints, cranial nerves grossly intact. Cannot evaluate tongue deviation due to prior surgical scarring
Continue with supportive care per vascular surgery protocol
Cardene therapy as needed, target systolic pressure 140-1 60
Follow hyperglycemia. There is no prior history of diabetes
Neurocheck, vascular check
Patient aware of deleterious effects of ongoing smoking
She plans to quit as of this hospital stay
Aspirin therapy, high-dose statin therapy continues
IV fluids
Reviewed with critical care nursing
TCCT 31 min
Original Note:
Consultation
Consultation Request
Date/Time Consultation Requested: 05/29
Date/Time Consultation Performed: 05/29
Reason for Consultation: critical care
Medical History
Allergies / Home Medications
Allergies
Allergy/AdvReac Type Severity Reaction Status Date / Time
penicillin V [Penicillin V] Allergy Swelling Verified 05/28/24 13:33
Home Medications
�Medication �Instructions �Recorded �Confirmed �Last Taken �Type
aspirin 81 mg chewable tablet 81 mg PO DAILY Blood Clot 05/28/24 05/28/24 05/28/24 History
Prevention/Tx
levothyroxine 137 mcg tablet 137 mcg PO DAILY Thyroid 05/28/24 05/28/24 05/28/24 History
Review of Systems
Vitals / Labs / Diagnostic Testing
Vital Signs
Temp Pulse Resp BP Pulse Ox
97.7 F 67 16 139/57 93
05/29/24 12:30 05/29/24 13:00 05/29/24 13:00 05/29/24 13:00 05/29/24 13:00
Lab Data
05/29/24 12:40
05/29/24 12:40
Laboratory Results
05/28/24
14:13
PT 12.3
INR 0.87
Diagnostic Testing:
[2024-05-29] MEDS: NSS 1000 IV (13:54)
[2024-05-29] MEDS: CARDENE 200 IV (13:54)
--- NOTE | 2024-05-29 13:57 | PTCARENOTE ---
13:40 transfer from PACU status post Left Carotid enterectomy. Arrived via bed on continues telemetry monitoring. Left Radial Luebbering
Patient AAO x3 Complain of headache 1 out of 10 on pain scale level denies left neck at incision pain .
NephroCheck performed with PECU nurse at bedside. RT side facial droop with tongue deviation to RT side _ patient reports due post surgery cancer. patient able to perform AROM b/L UE and LE equal muscle straight +5 pedal pulses palatable no edema
Normal sinus Rhythm on telemetry S1/S2 BP via left A-line SBP 170's CArdene initiated
Lungs clear no SOB on 2L of oxygen via nasal canula 95%
Abdomen soft non tender bS present
Peripheral lines: RT hand and left aC # 18
--- NOTE | 2024-05-29 14:39 | OR.RPT ---
Operative Report
Operative Report
PROCEDURE DATE: 05/29/2024
Preoperative diagnosis:
1. Symptomatic severe hemorrhagic appearing left common carotid artery plaque stenosis.
2. 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
Postoperative diagnosis: Same, radiation changes to the left neck.
Procedure: Left common carotid thromboendarterectomy with bovine pericardial patch angioplasty and intraoperative EEG/SSEP monitoring. Significant radiation changes to the left neck resulting in severely scarred tissues, significantly prolonging
dissection of the tissues (apply modifier 22 or other as indicated).
Surgeon: Emil
Lead Printer: VEL Aguilar, required for all aspects of procedure including assistance with traction/countertraction, following of suture line, assistance with closure.
Complications: None
Anesthesia: General
Indications for procedure:
As noted above history of head and neck cancer but from our discussion patient noted extensive right neck surgeries and radiation to the right neck. From what she was aware of there was no radiation to the left neck although this was treated
significant amount of time ago. She now presented with acute neurologic symptoms but resolved. Concerning for TIA/CVA event. MRIs confirmed acute infarcts. CT angiogram of the neck demonstrated severe left common carotid artery stenosis with
what appeared to be thrombus or hemorrhagic plaque. Raise great concern for risk for recurrent embolization event. Risk/benefits/alternatives therefore of carotid endarterectomy of the common carotid artery were discussed. Patient understood all
wished to proceed.
Description of procedure:
Patient was identified brought to the operating room placed on the table in supine position. After the adequate administration of anesthesia and perioperative antibiotics she was prepped and draped in the standard surgical fashion. A standard
preoperative timeout was undertaken and everybody was in agreement the plan. A standard longitudinal incision was made in the left neck that was carried through the skin subcutaneous tissue. Using the electrocautery dissection was carried through
the platysma muscle layer and then alongside the anterior medial border of the sternocleidomastoid muscle. Immediately once I was into the subcutaneous tissues, I noted dense scarred type tissue/radiation inflammatory reaction. I could immediately
tell that this side of the neck was a radiated neck as well. Therefore, careful dissection was undertaken, but heavily scarred tissues were noted. This prolonged of the dissection time. Once I dissected along the anterior medial border the
sternocleidomastoid muscle (which had become somewhat stuck to the tissues deep to it), I did identify a flattened fettuccine noodle-like jugular vein. Then using a combination of sharp dissection with the Metzenbaum scissors and electrocautery I
dissected along the anterior medial border of the internal jugular vein. There was a crossing vein branch which was ligated between silk ties and then divided. I then deepened my retraction. The common carotid artery was identified and carefully
dissected away from the surrounding structures take great care to avoid any injury to the structures. It was encased in scar tissue especially on the more proximal extent. I identified what appeared to be the vagus nerve on the lateral wall of the
common carotid artery, but I could not be sure that this was just scar tissue. Regardless I handled it very carefully and carefully chipped it off of the common carotid artery without injuring it and without grasping it directly. I dissected the
common carotid artery more distally and proximally. To palpation I could palpate what I thought was the area of plaque and it correlated to my CT scan findings/interpretation. Distally the carotid began to become more bulbous, and it appeared that
this was leading to the actual bulb of the carotid. The tissues there were very scarred and I did not dissect out the branches, but I carefully circumferentially dissected the common carotid artery here and passed a vessel loop around it. The
artery was very soft. More proximally, I carefully dissected with minimal mobilization and passed a vessel loop around where it was relatively soft and what to palpation seem to be proximal to the area of plaque/thrombus. A vessel loop was
carefully passed around it proximally here as well.
At this point I gave the patient an appropriate dose of heparin intravenously. We optimize blood pressure and conjunction with our anesthesiology colleagues. After 3 minutes of heparin circulation time, I clamped the distal common carotid
artery/bulb. This was where it was soft. There was no EEG or SSEP changes. I therefore then clamped proximally where it was softer. I then made an arteriotomy in the mid segment with an 11 blade and extended using a Del Cid scissor. I immediately
encountered hemorrhagic plaque with jenn thrombus adherent to it. This correlated exactly to what the CT scan suggested. There was no question that this is what had likely embolized to result in her recent infarcts. While my clamp was proximal
to the thrombus, there was oatmeal like hemorrhagic almost somewhat liquefied plaque that extended all the way to my proximal clamp. My distal clamp was nice and safe. Therefore I had to extend the incision more proximally and carefully dissected
through scar tissue further until I got to a more proximal softer segment and moved my clamp to here. I extended my arteriotomy proximally now. However there was still this hemorrhagic/liquefied plaque near the origin of my clamp. So I now
dissected slightly more proximally, and then moved my clamp 1 more time. Now I was able to achieve a nice endpoint. There was still some plaque but nicely adherent and I was able to nicely trim the plaque there. I then used a combination of a
Dutch John and manual plaque/thrombus removal with forceps and endarterectomized all the thrombus and plaque out of the common carotid artery here. Distally was very easy to get a nice clean endpoint. Proximally as I noted I was able to achieve a
reasonable endpoint and cut the plaque somewhat flush here. I then removed any fine debris throughout the endarterectomy bed with fine forceps. I irrigated heparinized saline vigorously. I then placed a couple 6-0 Prolene tacking sutures
proximally (though was in the line of flow and likely should not raise, I just wanted to be sure that the plaque would not move). I then used a bovine pericardial patch and sewed it into place using a running 5-0 Prolene suture. Prior to
completing and tying down my suture line I backbled the distal carotid by releasing the distal clamp temporarily and then we clamped it. I then unclamped the proximal very briefly and then reclamped it. I flushed again heparinized saline
vigorously. I then completed and tied down my suture line. Next I released my clamps. There is now excellent pulsatile flow in the carotid. There is an excellent Doppler signal. At this point is very satisfied. I placed a single 5-0 Prolene
[id number] suture at a single bleeding point on the patch. Hemostasis was then fully noted. Protamine was given to reverse the heparin. I then confirmed hemostasis. Irrigated thoroughly. We then closed in layers using 2-0 Vicryl to
reapproximate the sternocleidomastoid muscle over the closure site (she had a thin neck and has noted radiated tissue, and therefore I tried to approximate muscle overlying the treated carotid). We then used a 3 oh deep dermal/platysma muscle layer
running closure suture. Finally we closed the skin with 4-0 Monocryl running subcuticular stitch. Dermabond was applied. The patient tolerated procedure well. She awoke moving all extremities to command. All sponge, needle, instrument counts
were correct at the end of the case. She was transported to the recovery room in stable condition.
--- NOTE | 2024-05-29 15:49 | PTCARENOTE ---
Current order to advance diet as tolerating . Clear liquid diet order
[2024-05-29] MEDS: TYLENOL 650 MG PO ×2 (17:20→22:13)
[2024-05-29] MEDS: CRESTOR 20 MG PO (17:20)
--- NOTE | 2024-05-29 17:34 | PTCARENOTE ---
Patient in bed; Left radial A-line Zero . BP 150/68 MAP 98 Normal Sinus Rhythm 98; 96RA Cardene at 5mcg via left AC . Tylenol adm for mild neck pain surgical incision. able to tolerate clear liquid diet without difficulties
--- NOTE | 2024-05-29 21:49 | PTCARENOTE ---
Received patient at start of shift. Patient aao x3, denies pain, able to make needs known. Resting at times however awakens to verbal stimuli, affect pleasant. NSR on the monitor, positive radial and pedal pulses b/l, no edema noted. Lungs cta
throughout, pox 95% on 2L nc. BS hypoactive x4. Patient using bedpan assist x1, UO 225ml of clear yellow urine. Ice pack applied to left neck incision for comfort. Incision c/d/i, surgical glue in place, edges approximated. Swelling noted to
proximal aspect of incision, unchange from handoff with previous shift. Left ac 18g Cardene at 2.5 at start of shift, off around 1999 due to stable a-line sbp. Right hand iv with nss at 80ml/hr, patent. Call choudhary within reach, will continue to
monitor patient closely.
[2024-05-30] VITALS (19 sets, daily range): BP systolic 113–182; BP diastolic 55–100; PULSE 102; BMI 24.2
--- NOTE | 2024-05-30 00:24 | PTCARENOTE ---
Pt c/o headache 04/07, prn tylenol administered. SBP increased, Cardene gtt restarted around 2230. Positive results noted from both. Patient currently resting in bed, denies pain. Neurovascular checks remain unchanged. Will continue to monitor
closely. Call choudhary within reach.
[2024-05-30] MEDS: NSS 1000 IV (02:12)
--- NOTE | 2024-05-30 03:12 | PTCARENOTE ---
Patient down to 1L o2 nc, sats sustained between 95-97%. Assessment overall unchanged. Will continue to monitor closely.
[2024-05-30 04:40] LABS: Hematocrit 40.8 % (37.0-47.0); Hemoglobin 13.9 g/dL (12.0-16.0); Mean Corp Hgb Conc. 34.1 g/dL (33.0-37.0); Mean Corpuscular Hgb 28.5 pg (27.0-31.0); Mean Corpuscular Volume 83.6 fL (81.0-99.0); Mean Platelet Volume 10.5 fL (7.4-10.4); Platelet Count 207 10^3/uL (130-400); Red Blood Cell Count 4.88 10^6/uL (4.20-5.40); Red Cell Dist. Width 13.1 % (11.5-14.5); White Blood Cell Count 11.3 10^3/uL (4.8-10.8)
[2024-05-30 04:44] LABS: APTT 27.3 Sec (23.4-35.0); INR 0.96; PT 13.3 Sec (11.4-14.6)
[2024-05-30 04:56] LABS: Blood Urea Nitrogen 16 mg/dl (7-17); Carbon Dioxide 25 mmol/L (22-30); Chloride 106 mmol/L (98-107); Estimated Creatinine Clearance 46 ml/min; Glucose 130 mg/dl (70-99); Potassium 4.2 mmol/L (3.5-5.1); Sodium 138 mmol/L (135-145); eGFR > 60.00
[2024-05-30] MEDS: SYNTHROID 137 MCG PO (05:09)
[2024-05-30] MEDS: CARDENE 200 IV (06:47)
--- NOTE | 2024-05-30 07:52 | W.PN.INTV ---
Today's Communication / Plan
Recommendations
Weaned off Cardene drip
Atrial tachycardia noted, transient, asymptomatic
Out of bed to chair, ambulate
Recent small left MCA stroke noted, suspected cardioembolic
For transfer out of ICU. We will sign off. Please call with questions
Assessment
-
73-year-old female with history of head neck cancer with right-sided radiation therapy, mandibular surgery in the past, high-grade left carotid stenosis status post left CEA following acute stroke
S/p LCEA 05/29/24
S/p cerebral ischemic infarct, right-sided weakness
Atrial tachycardia
History of right neck surgery with radiation, right mandibular resection
Conditions present prior to admission
Hypertension/hyperlipidemia
Hypothyroidism history of thyroidectomy
30+ pack years of smoking, ongoing
Cachexia
Plan/recommendations
At this time, patient appears to be stable without complaints
Denies headaches
cranial nerves grossly intact. Cannot evaluate tongue deviation due to prior surgical scarring
Episode of atrial tachycardia noted, heart rate around 150, without complaints or symptoms
Moving forward
Continue with supportive care per vascular surgery protocol
Cardene drip has been weaned off
Follow hyperglycemia. There is no prior history of diabetes
Cardiology has been consulted per primary service
Neurocheck, vascular check
Patient aware of deleterious effects of ongoing smoking
She plans to quit as of this hospital stay
Aspirin therapy, high-dose statin therapy continues
Neurology also following
Out of bed to chair, PT/OT
Reviewed with critical care nursing, respiratory care, pharmacy
For transfer out of ICU. We will sign off. Please call with questions
Subjective Dataa
Subjective Data
Date of Service:
Date of Service: May 30, 2024
Subjective:
Patient evaluated earlier this morning, and intermittently throughout the day. She is feeling well, denies any chest pain, nausea, abdominal pain. Appears to be in good spirits. Episodic atrial tachycardia noted without symptoms
Objective Data
Data Reviewed
Vital Signs / I&O / Oxygen:
Vital Signs
Temp Pulse Resp BP Pulse Ox
98.1 F 88 19 165/75 97
05/30/24 03:20 05/30/24 07:45 05/30/24 07:45 05/29/24 16:55 05/30/24 07:45
Intake and Output
05/29/24 05/30/24 05/31/24
06:59 06:59 06:59
Intake Total 1337.5 / 1337.5
Output Total 1550 / 1550 250 / 250
Balance -212.5 / -212.5 -250 / -250
SaO2 97
Nasal Cannula flow liters per 2
minute
Physical Exam
General: Comfortable
HEENT: Normocephalic, Anicteric and Other (Chronic right neck radiation changes)
Cardiovascular: S1-S2, Regular Rhythm, Murmur (n), Rub (n), Peripheral Edema (n) and Calf Tenderness (n)
Respiratory: Wheeze (n), Crackles (n), Rhonchi (n) and Non-Labored Respirations
GI: Soft, Non Distended and Non Tender
Neurology: Awake, Alert and No Motor Deficits
Skin: Good Color, Jaundice (n) and Rash (n)
Labs/Micro/Reports
Lab Data
05/30/24 04:03
05/30/24 04:03
Laboratory Results
05/30/24
04:03
PT 13.3
INR 0.96
APTT 27.3
[2024-05-30] MEDS: LOW STRENGTH ASPIRIN 81 MG PO (08:18)
--- NOTE | 2024-05-30 08:18 | W.PN.VS ---
Today's Communication / Plan
-
Seen and assessed with Dr. Morales
Assessment/Plan
-
POD 1 left CEA
Plan:
- DC A-line
- DC IV fluids
- Out of bed/ambulate
- P.o. meds
- Increase diet
- If remains stable patient will okay from DC later today from vascular standpoint
Subjective Data
-
Date of Service: May 30, 2024
Patient visit is seen by Dr. Stein. Patient open for complaints at this time. Resting comfortably in bed. No events overnight.
Objective Data
-
Vital Signs
Temp Pulse Resp BP Pulse Ox
98.1 F 88 19 165/75 97
05/30/24 03:20 05/30/24 07:45 05/30/24 07:45 05/29/24 16:55 05/30/24 07:45
Intake and Output
05/29/24 05/30/24 05/31/24
06:59 06:59 06:59
Intake Total 1337.5 / 1337.5
Output Total 1550 / 1550 250 / 250
Balance -212.5 / -212.5 -250 / -250
Intake:
IV fluids (Total) 1337.5 / 1337.5
Cardene 137.5 / 137.5
IVF 1200 / 1200
Output:
Urine, Voided 1550 / 1550 250 / 250
Other:
Number of approximated LARGE 2 1
amounts of urine
Lab Results
05/30/24 04:03
05/30/24 04:03
Calcium 9.0 mg/dl (8.4-10.2) 05/30/24 04:03
Total Bilirubin 0.6 mg/dl (0.2-1.3) 05/28/24 14:13
AST 20 U/L (14-36) 05/28/24 14:13
ALT 13 U/L (0-35) 05/28/24 14:13
Alkaline Phosphatase 73 U/L (38-126) 05/28/24 14:13
Total Protein 7.1 g/dl (6.3-8.2) 05/28/24 14:13
Albumin 4.6 g/dl (3.5-5.0) 05/28/24 14:13
Physical Exam
-
AAO x 3
No tachypnea on room air
No tachycardia
Neck site clean, dry, intact, soft, flat
Abdomen soft
Moves all extremities
Follows all commands
--- NOTE | 2024-05-30 09:00 | PTCARENOTE ---
Rec'd pt at 0700 awake alert and oriented resting in bed. Neuro checks completed with offgoing RN. Pt denies pain or discomfort. Denies headache or dizziness. Speech is clear. Tongue deviates to the R and pt with R sided facial droop with smile
which per report is chronic for the patient since prior tongue/jaw surgery. ADAMSON. No c/o numbness or tingling. BREN at 3mm. NIH is a 1 for the facial droop. Skin is pale pink wm and dry. L neck incision is open to air. Approximated with surgical
adhesive present. No drainage. Sl firmness and swelling at the proximal end but no change from earlier per assessment/report. Pt with ice intermittent to her L neck. Respirs are unlabored. Rec'd pt on 2L nc with sats of 97%- changed at 0800 to RA
with sats of 94%. BS are clear. Monitor SR. + pulses. No edema. L radial a line is intact. Site wnl. Zeroed and recalibrated. Congurent with cuff BP. Waveform as documented. A-line removed at 0850 per MD order-pressure held over the site-no
hematoma. Rec'd pt at change of shift on IV Cardene at 2.5 mg- DC'd at 0805 as BP was 104 syst. Denies chest pain. Abd is soft with + BS. Denies nausea. Voiding yellow urine on the bedpan. IV NSS infusing at 80 ml/hr via R hand IV-sites wnl. Bing
care given. Pt able to help with repositioning. Plan of care reviewed with pt. Call choudhary in reach.
--- NOTE | 2024-05-30 09:00 | PTCARENOTE ---
Additional note Using L arm only for BP's as she has had radiation to her R neck area.
--- NOTE | 2024-05-30 09:54 | W.PN.HOSP.TC ---
Today's Communication/Plan
-
PT eval, anticipate discharge
Assessment / Plan
Assessment / Plan
73-year-old female with PMH CKD 3B, HLD, DM 2, h/o head/neck cancer s/p partial tongue resection, neck dissection, R jaw surgery, total thyroidectomy, who presented to ED for evaluation of abnormal outpatient carotid study. This was ordered by
her PCP as well as outpatient head CT (which was unremarkable) for evaluation of right arm/leg weakness that lasted under 24 hours (05/24). Due to the high-grade stenosis of the left common carotid she was instructed to present to emergency room.
Acute/subacute left-sided cerebral ischemic infarct, likely embolic
Symptomatic L carotid stenosis s/p L CEA 05/29/24
Severe R carotid stenosis
-MRI of the brain shows small acute infarcts in the left frontal lobe, parietal lobe and chronic infarct in the right frontal, right occipital and right parietal lobe. Apprec neuro, vascular.
-Her risk factor apart from radiation to the neck is smoking which advised strongly to quit. Also history of diabetes, hyperlipidemia. Lipid panel here wnl, A1C 6.4 at goal for her age (05/26 from outpt records).
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
-Patient already on aspirin, will discuss plavix with vascular surg and neurology. Continue statin.
Follow blood pressure in house. She is on telemetry-sinus rhythm.
Follow-up with neurology and vascular surgery outpatient
Preop cardiac clearance-patient without prior history of heart disease. No CHD risk equivalents. Exercise tolerance more than 4 METS. EKG in sinus rhythm with no acute ST-T changes. Patient is at a low risk for cardiovascular events for proposed
surgery. Will proceed with surgery as planned.
Bilateral arm blood pressure discrepancy with a higher number in the left arm. Right radial artery is weak. Asymptomatic in the right arm. CTA noted. Small caliber right subclavian artery noted on CT . Will review with vascular surgery. Obtain
blood pressure reading in the left arm.
Current smoker-strongly advised to quit smoking.
Hypothyrodism, s/p thyroidectomy -cw Synthroid
Code status: Full
VTE ppx: SCDs
Diet: low chol
Dispo planning: anticipate discharge today pending PT eval
Anticipated Discharge: Today
Subjective/Interval History
-
Date of Service: May 30, 2024
No acute events overnight. Feels well, no complaints. Denies lightheadedness, dizziness, chest pain/pressure, neck pain, shortness of breath, abdominal pain, nausea, vomiting, diarrhea, constipation. Tolerating oral hydration. Has not ambulated
yet.
Objective Data
-
Labs:
Laboratory Results
05/30/24
04:03
WBC 11.3 H
Hgb 13.9
Hct 40.8
Plt Count 207
PT 13.3
INR 0.96
APTT 27.3
Sodium 138
Potassium 4.2
Chloride 106
Carbon Dioxide 25
BUN 16
Creatinine 0.9
Glucose 130 H
Calcium 9.0
Vital Signs:
Vital Signs
Temp Pulse Resp BP Pulse Ox
98.3 F 93 17 143/71 92
05/30/24 08:00 05/30/24 09:15 05/30/24 09:15 05/30/24 08:01 05/30/24 09:15
I&O
05/29/24 05/30/24 05/31/24
06:59 06:59 06:59
Intake Total 1337.5 / 1437.5 300 / 300
Output Total 1550 / 1550 750 / 750
Balance -212.5 / -112.5 -450 / -450
Review of Systems
-
History Source: Patient
All other systems: Reviewed and negative
Physical Exam
-
General: No Apparent Distress, Comfortable and Conversant; Negative Pain, Fever, Chills or Sweats
HEENT: Normocephalic, Atraumatic and Other (Left neck surgical incision with overlying dermabond, clean/dry/intact with no erythema/drainage. Just superior to incision, small 1cm nodule that is soft mobile nontender with no
induration/erythema/fluctuance/drainage)
Respiratory: Clear to Auscultation and Non Labored Respirations; Negative Wheezes, Rales, Rhonchi or Accessory Resp Muscle Use
Cardiac: Regular Rhythm and S1/S2
GI: Soft, Nontender, Nondistended and Normal Bowel Sounds
Musculoskeletal: No Clubbing, No Cyanosis and No Edema
Skin: Warm and Dry
Neuro: Awake, Alert, Oriented and Nonfocal/Grossly Intact; Negative Slurred Speech or Facial Droop
Psych: Calm
Data Reviewed
-
CT Scan: Image personally visualized and interpreted and Report Reviewed by me
Ultrasound: Report Reviewed by me
MRI: Image personally visualized and interpreted and Report Reviewed by me
Medical Tests (Nuc Med, Echo etc): Report Reviewed by me
Labs: Labs Reviewed by me
--- NOTE | 2024-05-30 10:00 | PTCARENOTE ---
IV fluids capped per md order. Wants to rest a little longer prior to getting oob. L neck incision is unchanged
--- NOTE | 2024-05-30 11:10 | PTCARENOTE ---
Resting this am. Fair appetite for breakfast. Denies nausea. Denies discomfort. VS as documented. Assisted oob to the bathroom- voided yellow urine. Brushed her teeth and partial CHG bath given. Currently resting oob in the chair. Gait steady with
walking short distances but pt states she uses a cane for longer distance. Call choudhary in reach.
--- NOTE | 2024-05-30 11:17 | CM ---
Addendum entered by Tc Vigil 05/30/24 15:17:
PT and OT evaluations noted - pt has no skilled needs.
D/C plan: D/C plan: home no needs. Son to transport.
Original Note:
CM following re: discharge planning.
Reviewed pt's chart, met with pt.
Pt is a 73 year old female, admitted with primary dx of Left CEA. 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
Pt reports she lives with 2SH, 1 step to enter, has 2 supportive children. pt reports she uses a cane when goes outside, known to [facility]. No SNF history. Pt stated she will prefer [facility] if recommended.
According to Vascular surgery, pt possible will be discharged hpem today. Pt is aware, expressed her agreement and she stated her son will transport home at discharge.
IMM reviewed, placed on chart, pt has a copy.
PCP: [facility]
Pharmacy: [facility] [place].
D/C plan: home with anticipated no needs vs [facility] if recommended. Son to transport.
--- NOTE | 2024-05-30 13:00 | PTCARENOTE ---
Tolerating sitting oob in the chair. Ambulated 1 loop around the ICU. Overall tolerated. HR 110 with walking but then back in bed 90's. SR. Denied any dizziness but admitted to feeling a little tired. Used her cane to walk but overall gait is
steady. Back in the chair awaiting lunch. Ice pack to L neck incision. No changes.
--- NOTE | 2024-05-30 13:01 | W.PN.NEURO.1 ---
Today's Communication / Plan
-
.
Subjective/Objective
Subjective Data
Date of Service: May 30, 2024
Neurology follow-up note.
Ms. Ellis reports no complaints. She underwent left common carotid thromboendarterectomy/angioplasty yesteraday.the patient denied new motor, sensory or visual changes.
TTE-no PFO or intramural thrombus
PMH: left MCA territory stroke(05/2024), BL CCA stenosis, Oropharyngeal carcinoma (s/p chemo, RT), hypothyroidism, diverticulosis
PSH: Anterior neck dissection, left common carotid thromboendarterectomy/angioplasty
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
All: Penicillin
ROS: Constitutional: Negative. Negative for chills, fever and unexpected weight change.
HENT: Negative for ear pain, hearing loss, tinnitus and trouble swallowing.
Eyes: Negative. Negative for photophobia, pain and visual disturbance.
Respiratory: Negative for cough, choking and shortness of breath.
Cardiovascular: Negative for chest pain, palpitations and leg swelling.
Gastrointestinal: Negative for abdominal pain and vomiting.
Endocrine: Negative. Negative for cold intolerance.
Genitourinary: Negative for dysuria, flank pain and urgency.
Musculoskeletal: Negative for back pain, gait problem, neck pain and neck stiffness.
Skin: Negative for rash.
Allergic/Immunologic: Negative. Negative for immunocompromised state.
Neurological: Positive for transient right-sided weakness
Psychiatric/Behavioral: Negative for behavioral problems, confusion and hallucinations.
General: Well developed. In no acute distress.
Cardio: Regular rate and rhythm without murmur. Extremities are without cyanosis or edema.
Neuro:
Mental Status: Alert, oriented to person, place, and date. Normal attention and recall. Good fund of knowledge. Follows complex requests across the midline. Comprehension, naming, and repetition intact.
Cranial Nerves: Pupils are equally round and reactive to light. EOMs full. Visual freeman full to confrontation. No ptosis. No nystagmus. V1-V3 intact to light touch and pinprick bilaterally, symmetric. Face symmetric. Normal hearing AU. The
palate elevated well. SCMs and traps 5/5. Tongue midline. Mild dysarthria (chronic).
Motor: Normal bulk and tone. No pronator or arm drift. Strength 5/5 throughout. No clonus.
Coordination: No dysmetria or tremor.
Gait: deferred
Assessment and Plan:
I. Acute/subacute small left MCA territory stroke. Likely etiology�embolic
II. Symptomatic left CCA stenosis, s/p carotid thromboendarterectomy/angioplasty
III. Severe right CCA stenosis, likely post RT
IV. Chiari I malformation.
V. Chronic right COTTON PRESSER infarct
-Avoid cerebral hypoperfusion
-Continue DAPT if no objections from vascular surgery perspective
-Lipitor 40 mg nightly
-Outpatient Holter monitoring, cardiology follow-up
-Outpatient neurology follow-up
-Please recall neurology service with any questions or concerns
I personally reviewed all radiology and labs along with past medical records pertinent to current medical problems. Total time spent in patient care is 35 minutes.
Thank you for allowing us to participate in the care of this patient. Please do not hesitate to contact us with any questions or concerns.
Objective Data
Vital Signs
Temp Pulse Resp BP Pulse Ox
36.4 C 84 24 134/70 93
05/30/24 12:01 05/30/24 11:00 05/30/24 11:00 05/30/24 11:00 05/30/24 11:15
Lab Results
05/30/24 04:03
05/30/24 04:03
PT 13.3 Sec (11.4-14.6) 05/30/24 04:03
INR 0.96 05/30/24 04:03
APTT 27.3 Sec (23.4-35.0) 05/30/24 04:03
Sodium 138 mmol/L (135-145) 05/30/24 04:03
Potassium 4.2 mmol/L (3.5-5.1) 05/30/24 04:03
BUN 16 mg/dl (7-17) 05/30/24 04:03
Glucose 130 mg/dl (70-99) H 05/30/24 04:03
Calcium 9.0 mg/dl (8.4-10.2) 05/30/24 04:03
LDL Cholesterol, Calc 106 mg/dl 05/29/24 06:25
Patient Allergies
penicillin V [Penicillin V] Allergy (Verified 05/28/24 13:33)
Swelling
Vital Signs and Labs
-
Vital Signs and Labs:
Vital Signs
Temp Pulse Resp BP Pulse Ox
36.4 C 84 24 134/70 93
05/30/24 12:01 05/30/24 11:00 05/30/24 11:00 05/30/24 11:00 05/30/24 11:15
Lab Results
05/30/24 04:03
05/30/24 04:03
PT 13.3 Sec (11.4-14.6) 05/30/24 04:03
INR 0.96 05/30/24 04:03
APTT 27.3 Sec (23.4-35.0) 05/30/24 04:03
Sodium 138 mmol/L (135-145) 05/30/24 04:03
Potassium 4.2 mmol/L (3.5-5.1) 05/30/24 04:03
BUN 16 mg/dl (7-17) 05/30/24 04:03
Glucose 130 mg/dl (70-99) H 05/30/24 04:03
Calcium 9.0 mg/dl (8.4-10.2) 05/30/24 04:03
LDL Cholesterol, Calc 106 mg/dl 05/29/24 06:25
Medications
-
Medications:
Generic Name Dose Route Start Last Admin
Trade Name Freq PRN Reason Stop Dose Admin
Acetaminophen 650 mg 05/28/24 19:29 05/29/24 22:13
Acetaminophen 325 Mg Tablet PO 06/25/24 19:28 650 mg
Q4HPRN PRN Administration
mild pain/TOSCANO/temp> 100.4F
Aspirin 81 mg 05/29/24 08:00 05/30/24 08:18
Aspirin 81 Mg Chewable Tablet PO 06/26/24 07:59 81 mg
DAILY JUSTUS Administration
Bisacodyl 10 mg 05/29/24 12:04
Bisacodyl 10 Mg Rectal Suppository RECTAL 06/26/24 12:03
DAILYPRN PRN
constipation
Hydromorphone HCl 0.5 mg 05/29/24 12:08
Hydromorphone 0.5 Mg/0.5 Ml Syringe IV 06/12/24 12:07
Q4HPRN PRN
severe pain
Levothyroxine Sodium 137 mcg 05/29/24 06:00 05/30/24 05:09
Levothyroxine 137 Mcg Tablet PO 06/26/24 05:59 137 mcg
DAILY@0600 JUSTUS Administration
Oxycodone HCl 5 mg 05/29/24 12:08
Oxycodone 5 Mg Regular Release Tablet PO 06/12/24 12:07
Q4HPRN PRN
moderate pain
Rosuvastatin Calcium 20 mg 05/29/24 18:00 05/29/24 17:20
Rosuvastatin (Crestor) 20 Mg Tablet PO 06/26/24 17:59 20 mg
QPM JUSTUS Administration
Sodium Chloride 0 flush 05/28/24 19:00
Sodium Chloride 0.9% (Flush) Syringe IV 06/25/24 18:59
PER PROTOCOL JUSTUS
Home Medications
-
Home Medications
aspirin 81 mg chewable tablet 81 mg PO DAILY Blood Clot Prevention/Tx 05/28/24
levothyroxine 137 mcg tablet 137 mcg PO DAILY Thyroid 05/28/24
--- NOTE | 2024-05-30 14:00 | PTCARENOTE ---
Pt assisted back to bed. Tolerated being oob. Fair appetite for lunch. No c/o nausea. Pt overall has been in SR In the 80-90's- however at 1352 had several episods of PAT with HR going up to the 145-150 range-self limiting but HR now running more in
the 104-108 range. STach. Pt does not feel any different other than admits she is a little tired. Will update Vasc surgery.
--- NOTE | 2024-05-30 14:23 | W.PN.UPDATE ---
Addendum entered and electronically signed by Stephon Stein MD 05/30/24 16:15:
Seen and examined with VEL Aguilar earlier this a.m. This is a late entry. Agree with findings as noted below. Patient was without any complaints. Left neck incision is clean dry and intact. No hematoma. Neurologically no focal deficits, moves
all extremities well. Plan/as discussed and noted in VEL Aguilar note. Discontinue arterial line, Hep-Lock IV fluids, out of bed. Okay for discharge once stable from a medical perspective from a vascular standpoint.
Original Note:
Update Note
Progress Note Update
Pt doing well from vascular perspective, follow up added to chart.
Please call with questions/concerns
--- NOTE | 2024-05-30 14:30 | PTCARENOTE ---
[facility] surgery and Hospitalist service updated on pt. Currently resting in bed. HR 94-104. SR-ST. No other changes
--- NOTE | 2024-05-30 15:44 | CON.CAR ---
Addendum entered and electronically signed by Tyron Albert MD 05/30/24 16:21:
I saw and examined the patient.
The HAZARDOUS MATERIALS ANALYST or PA's note was reviewed and I agree with the note.
Comment: General: Well developed, well nourished in NAD.
Neck: Supple, no JVD, HJR, carotids +2 B/L, no bruits bilaterally.
Heart: Non displaced PMI, RRR, no murmurs, No S3, S4, no rubs.
Lungs: Scattered rhonchi
Left CEA wound noted
Extremities: No clubbing, cyanosis or edema bilaterally.
Neuro: Grossly nonfocal, awake, alert and oriented x3.
Marlene has a history of head neck cancer status post partial tongue resection, thyroidectomy and chemo and radiation with recurrence of right jaw surgery 2020. She had episode of right upper extremity and lower extremity weakness consistent with
possible TIA and an outpatient carotid revealed left carotid disease. She is status post left carotid neurectomy on 05/29/2024. Cardiology was consulted for brief episode of tachycardia.
Reviewed telemetry. There were brief episodes of atrial tachycardia. This can be a normal postop phenomenon. If persist may consider beta-rich or possibly calcium channel rich given tobacco history and possible COPD. Discussed with
nursing. Will follow for now with no treatment
Original Note:
Consultation
Consultation Request
Date/Time Consultation Performed: 05/30/24
Requesting Provider: Dr. Padgett, resident
Performing Provider: Ondina Sutton PA-C for Dr. Albert
Reason for Consultation: tachycardia
Medical History
-
Chief Complaint: L CEA
History of Present Illness:
Patient is a 73-year-old female with past medical history of head and neck cancer status post partial tongue resection, thyroidectomy and chemo and radiation in 2007, recurrence with right jaw surgery in 2020. She had a recent episode of transient
right upper extremity and lower extremity weakness with concern for TIA. She had an outpatient carotid study which showed left carotid stenosis. She presented to ER and underwent left CEA on 06/25/2024. Cardiology consulted due to several brief
episodes of tachycardia on telemetry. Patient asymptomatic. Was sitting up in chair eating lunch while occurring. Denies recent chest pain or shortness of breath. She is ongoing smoker. Denies cardiac history.
PMH:
Head and neck cancer status post partial tongue resection, thyroidectomy, chemo and radiation in 2007 with recurrence status post right jaw surgery 2020
Hypothyroidism as result of above
Ongoing tobacco use
Past Medical History
Past Medical History: Other (in HPI)
Social History
Tobacco: Smoker
Personal:
Living: With Family
Employment: Retired
Family History
Family History: Reviewed & Not Pertinent
Allergies / Home Medications
Allergy/AdvReac Type Severity Reaction Status Date / Time
penicillin V [Penicillin V] Allergy Swelling Verified 05/28/24 13:33
�Medication �Instructions �Recorded �Confirmed �Type
aspirin 81 mg chewable tablet 81 mg PO DAILY Blood Clot 05/28/24 05/28/24 History
Prevention/Tx
levothyroxine 137 mcg tablet 137 mcg PO DAILY Thyroid 05/28/24 05/28/24 History
Review of Systems
-
History Source: Patient
All other systems: Negative unless noted
Physical Exam
Vital Signs
Temp Pulse Resp BP Pulse Ox
97.6 F 97 24 159/82 96
05/30/24 12:01 05/30/24 14:30 05/30/24 14:30 05/30/24 14:00 05/30/24 13:00
Lab Results
05/30/24 04:03
05/30/24 04:03
Physical Exam
General: No Apparent Distress and Comfortable
HEENT: Normocephalic, Anicteric, Moist Mucous Membranes and Other (L neck incision c/d/i. R jaw abnormality as result of prior surgery)
Respiratory: Clear and Non Labored Respirations
Cardiac: S1/S2 and Regular Rhythm
GI: Soft, Non Tender, Non Distended and Normal Bowel Sounds
Musculoskeletal: No Clubbing, No Cyanosis and No Edema
Skin: Warm and Dry
Neuro: AO x 3
Impression / Plan
-
Primary Career Technology Teacher: none prior to admission
Assessment:
Concern for recent TIA (transient R UE and LE weakness)
L carotid stenosis s/p L CEA 05/29/24
Post op parox atrial tachycardia, brief
Head and neck cancer status post partial tongue resection, thyroidectomy, chemo and radiation in 2007 with recurrence status post right jaw surgery 2020
Hypothyroidism as result of above
Ongoing tobacco use
ECHO 05/29/24: EF 55 to 60%, mild TR, PAP 33 mmHg
Plan:
- Patient underwent left CEA on 05/29/2024
- Doing well postoperatively. Incision site clean dry and intact
- Today noted on telemetry to have several brief episodes of paroxysmal atrial tachycardia, asymptomatic
- Check TSH given hypothyroidism post thyroidectomy on levothyroxine
- Recent echo with results as above
- If episodes more persistent overnight, would consider addition of low-dose beta-rich or calcium channel rich, however for now we will continue to observe in perioperative setting
- smoking cessation advised
- Discussed with nursing
Data Reviewed
-
EKG: Tracing Personally Visualized and interpreted
Medical Tests (Nuc Med, Echo etc): Report Reviewed by me
Labs: Labs Reviewed by me
Old Records: Reviewed
--- NOTE | 2024-05-30 15:52 | PTCARENOTE ---
Cardiology in to see pt. ECG done. Pt currently in SR in the '
[2024-05-30 17:02] LABS: TSH Reflex To Free T4 < 0.02 uIU/ml (0.47-4.68)
[2024-05-30 17:32] LABS: Free T4 2.81 ng/dl (0.78-2.19)
[2024-05-30] MEDS: CRESTOR 20 MG PO (17:37)
--- NOTE | 2024-05-30 17:45 | PTCARENOTE ---
Assessment is unchanged. No complaints. Report called to [address] [place] [address]. Neuro checks and incision are unchanged. Stroke packet given to pt. Will transfer pt via wheelchair.
[2024-05-31 03:28] VITALS: BP 168/89
[2024-05-31] MEDS: SYNTHROID 137 MCG PO (05:34)
[2024-05-31 06:43] LABS: Hematocrit 40.7 % (37.0-47.0); Hemoglobin 13.8 g/dL (12.0-16.0); Mean Corp Hgb Conc. 33.9 g/dL (33.0-37.0); Mean Corpuscular Hgb 28.2 pg (27.0-31.0); Mean Corpuscular Volume 83.2 fL (81.0-99.0); Platelet Count 198 10^3/uL (130-400); Red Blood Cell Count 4.89 10^6/uL (4.20-5.40); Red Cell Dist. Width 13.1 % (11.5-14.5); White Blood Cell Count 9.7 10^3/uL (4.8-10.8)
[2024-05-31 07:06] LABS: Blood Urea Nitrogen 19 mg/dl (7-17); Calcium 9.6 mg/dl (8.4-10.2); Carbon Dioxide 26 mmol/L (22-30); Chloride 106 mmol/L (98-107); Estimated Creatinine Clearance 41 ml/min; Glucose 109 mg/dl (70-99); Magnesium 1.5 mg/dl (1.6-2.3); Potassium 4.3 mmol/L (3.5-5.1); Sodium 139 mmol/L (135-145); eGFR 59.49
[2024-05-31 07:40] VITALS: BP 162/83
--- NOTE | 2024-05-31 08:26 | W.PN.CARDCBS ---
Today's Communication / Plan
-
Okay for discharge from cardiac standpoint
We will arrange for outpatient monitor and follow-up visit
Impression / Plan
-
Primary Senior Qa Analyst: none prior to admission
Assessment:
Brief runs of atrial tachycardia
Concern for recent TIA (transient R UE and LE weakness)
L carotid stenosis s/p L CEA 05/29/24
Head and neck cancer status post partial tongue resection, thyroidectomy, chemo and radiation in 2007 with recurrence status post right jaw surgery 2020
Hypothyroidism as result of above
Ongoing tobacco use
ECHO 05/29/24: EF 55 to 60%, mild TR, PAP 33 mmHg
Plan:
She seems stable from a cardiac standpoint.
Still with occasional brief episodes of atrial tachycardia.
From a cardiac standpoint, okay for discharge.
We will arrange for a 1 week outpatient monitor and a follow-up cardiac visit.
At present, would not discharge on beta-rich or calcium rich.
Cardiac meds at discharge should be aspirin 81 mg a day and rosuvastatin 20 mg daily.
Progress Note - Senior Qa Analyst
Subjective
Date of Service: May 31, 2024:
Medications: Aspirin 81 mg a day, Synthroid 137 mcg daily, rosuvastatin 20 mg a day
162/83, 134/77, 113/55, pulse 96, frail, pleasant, status post neck dissection, left carotid endarterectomy scar intact, some temporal wasting, diminished breath sounds, regular rate and rhythm without murmurs, abdomen benign extremities without
edema
Hemoglobin 13.8, BUN/creatinine 19 and 1.0, potassium 4.3, magnesium 1.5
Objective
Labs:
05/31/24 05:49
05/31/24 05:49
Labs
Hgb 13.8 g/dL (12.0-16.0) 05/31/24 05:49
Hct 40.7 % (37.0-47.0) 05/31/24 05:49
Plt Count 198 10^3/uL (130-400) 05/31/24 05:49
PT 13.3 Sec (11.4-14.6) 05/30/24 04:03
INR 0.96 05/30/24 04:03
APTT 27.3 Sec (23.4-35.0) 05/30/24 04:03
Sodium 139 mmol/L (135-145) 05/31/24 05:49
Potassium 4.3 mmol/L (3.5-5.1) 05/31/24 05:49
BUN 19 mg/dl (7-17) H 05/31/24 05:49
Creatinine 1.0 mg/dL (0.6-1.0) 05/31/24 05:49
Glucose 109 mg/dl (70-99) H 05/31/24 05:49
Vital Signs and I&O:
Vital Signs
Temp Pulse Resp BP Pulse Ox
36.9 C 96 16 162/83 96
05/31/24 07:40 05/31/24 07:40 05/31/24 07:40 05/31/24 07:40 05/31/24 07:40
Vital Signs
Temp Pulse Resp BP Pulse Ox
36.9 C 96 16 162/83 96
05/31/24 07:40 05/31/24 07:40 05/31/24 07:40 05/31/24 07:40 05/31/24 07:40
Intake & Output
05/29/24 05/30/24 05/31/24 06/01/24
07:59 07:59 07:59 07:59
Intake Total 1417.5 / 1497.5 610 / 610
Output Total 1800 / 1800 900 / 900
Balance -382.5 / -302.5 -290 / -290
Physical Exam
Physical Exam
See above
[2024-05-31] MEDS: LOW STRENGTH ASPIRIN 81 MG PO (08:30)
--- NOTE | 2024-05-31 10:00 | W.PN.HOSP.TC ---
Today's Communication/Plan
-
DC
Assessment / Plan
Assessment / Plan
73-year-old female with PMH CKD 3B, HLD, DM 2, h/o head/neck cancer s/p partial tongue resection, neck dissection, R jaw surgery, total thyroidectomy, who presented to ED for evaluation of abnormal outpatient carotid study. This was ordered by
her PCP as well as outpatient head CT (which was unremarkable) for evaluation of right arm/leg weakness that lasted under 24 hours (05/24). Due to the high-grade stenosis of the left common carotid she was instructed to present to emergency room.
Acute/subacute left-sided cerebral ischemic infarct, likely embolic
Symptomatic L carotid stenosis s/p L CEA 05/29/24
Severe R carotid stenosis
-MRI of the brain shows small acute infarcts in the left frontal lobe, parietal lobe and chronic infarct in the right frontal, right occipital and right parietal lobe. Apprec neuro, vascular.
-Her risk factor apart from radiation to the neck is smoking which advised strongly to quit. Also history of diabetes, hyperlipidemia. Lipid panel here noted A1C 6.4 at goal for her age (05/26 from outpt records).
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
-Patient already on aspirin, statin. Discussed with neurology and vascular today-neurology recommends Plavix for 3 weeks.
Follow-up with neurology and vascular surgery outpatient
Elevated blood pressure-possible hypertension. Multiple readings are above the goal. Will start a low-dose amlodipine for blood pressure control.
Bilateral arm blood pressure discrepancy with a higher number in the left arm. Right radial artery is weak. Asymptomatic in the right arm. CTA noted. Small caliber right subclavian artery noted on CT . Obtain blood pressure reading in the left
arm.
Atrial tachycardia-telemetry shows no evidence of arrhythmia. Appreciate cardiology input. They are going to arrange outpatient Holter monitor. Stable for discharge from their standpoint as well today.
Current smoker-strongly advised to quit smoking. She is motivated to quit going forward.
Hypothyrodism, s/p thyroidectomy -cw Synthroid
Code status: Full
VTE ppx: SCDs
Diet: low chol
Medically stable for discharge.
More than 30 minutes spent in discharge including
Final examination of the patient
Summarizing hospital stay
Instructions for continuing care to all relevant caregivers
Preparation of discharge records, prescriptions, and referral forms
Total time spent (in minutes): 31 minutes
Anticipated Discharge: Today
Subjective/Interval History
-
Date of Service: May 31, 2024
Denies any neurological symptoms. Denies any headache. No limb weakness or tingling numbness in the hands or legs. No speech impairment.
Denies any chest pain, palpitations or shortness of breath.
Denies any dizziness.
Eating fine without any GI symptoms.
Objective Data
-
Labs:
Laboratory Results
05/31/24
05:49
WBC 9.7
Hgb 13.8
Hct 40.7
Plt Count 198
Sodium 139
Potassium 4.3
Chloride 106
Carbon Dioxide 26
BUN 19 H
Creatinine 1.0
Glucose 109 H
Calcium 9.6
Vital Signs:
Vital Signs
Temp Pulse Resp BP Pulse Ox
98.5 F 96 16 162/83 96
05/31/24 07:40 05/31/24 07:40 05/31/24 07:40 05/31/24 07:40 05/31/24 07:40
I&O
05/30/24 05/31/24 06/01/24
06:59 06:59 06:59
Intake Total 1337.5 / 1417.5 690 / 690
Output Total 1550 / 1550 1150 / 1150
Balance -212.5 / -132.5 -460 / -460
Physical Exam
-
General: No Apparent Distress
HEENT: Moist Mucous Membranes
Respiratory: Clear to Auscultation
Cardiac: Regular Rhythm and S1/S2
GI: Soft
Neuro: AO x 3 and No Motor Deficits; Negative Slurred Speech or Facial Droop
Psych: Calm; Negative Confused
Data Reviewed
-
Labs: Labs Reviewed by me
--- NOTE | 2024-05-31 10:23 | W.DS.TRANS ---
DC Summary - Roving Department Supervisor
-
Discharge Instructions:
Discharge Diagnosis/Procedures Acute/subacute left-sided cerebral ischemic
infarct, likely embolic
Symptomatic L carotid stenosis s/p L CEA 05/29/24
Hypertension
Hyperlipidemia
Diet As tolerated,Low Sodium
Activity No strenuous activity
Driving Restrictions Not until seen by your Dr
Bathing Restrictions OK to Shower
Instructions:
Stand-Alone Forms: DC Instr - Vascular OR
Changes to Home Medications: Yes
Discharge Medications:
DC Medications w/original date entered in [employer]
aspirin 81 mg chewable tablet 81 mg PO DAILY Blood Clot Prevention/Tx 05/28/24
levothyroxine 137 mcg tablet 137 mcg PO DAILY Thyroid 05/28/24
acetaminophen 325 mg tablet 650 mg (2 x 325 mg) PO Q4HPRN PRN mild pain/TOSCANO/temp> 100.4F #1 tab 05/31/24
amlodipine 2.5 mg tablet (Norvasc) 2.5 mg PO DAILY #30 tabs 05/31/24
clopidogrel 75 mg tablet (Plavix) 75 mg PO DAILY #20 tabs 05/31/24
rosuvastatin 20 mg tablet 20 mg PO QPM #30 tabs 05/31/24
Home Medication Changes
Medication-Plavix, Crestor, and amlodipine.
Pending Results: No
--- NOTE | 2024-05-31 10:24 | W.DCSUMMARY ---
Discharge Summary
Discharge Data
Date of Admission: 05/28/24
Date of Discharge: 05/31/24
-
Pending Results: No
Hospital Course
Primary diagnosis:
Acute/subacute left-sided cerebral ischemic infarct, likely embolic
Symptomatic L carotid stenosis s/p L carotid endarterectomy 05/29/24
Essential hypertension
Hyperlipidemia
Secondary diagnosis:
Hypothyroidism
Hospital course:
73-year-old current smoker with prior neck radiation and surgery for head and neck cancer had right arm/leg weakness at home which lasted for 24 hours. Outpatient evaluation revealed a high-grade stenosis of the left carotid artery so sent in for
treatments.
MRI of the brain showed small acute infarcts in the left frontal lobe, parietal lobe and chronic infarct in the right frontal, right occipital and right parietal lobe. She was nonfocal neurologically.
CT of the head and neck showed-
Patent bilateral common carotid arteries. There is moderate stenosis within the mid right common carotid artery secondary to noncalcified atherosclerotic plaque. There is multifocal mild/moderate stenosis within the left common carotid artery
secondary to noncalcified plaque. There is a focus of near high-grade stenosis within the mid left common carotid artery which may be secondary to noncalcified plaque or chronic thrombus There is borderline retropharyngeal course of the proximal
left common carotid artery.
There is mixed density atherosclerotic plaque of the atherosclerotic of the carotid bifurcation with resultant mild stenosis. There is high-grade stenosis within the proximal right common carotid artery secondary to predominantly noncalcified
atherosclerotic plaque with resultant 75% stenosis by NASCET criteria .
Mixed density atherosclerotic plaque of the carotid bifurcation/proximal ICA with resultant approximately 50% stenosis by NASCET criteria.
Was seen by vascular surgery and had L carotid endarterectomy with bovine pericardial patch angioplasty 05/29/24.
There was a discrepancy in the bilateral arm blood pressure readings and left more than right. The right radial pulses was very low volume secondary to diminutive right subclavian artery but patient is asymptomatic without any arm symptoms. No
vascular interventions was recommended.
During the stay her blood pressure showed multiple readings above the goal and was initiated on amlodipine.
Her LDL was 106 and with acute stroke she was started on's high intensity statins.
With atherosclerotic disease neurology recommended Plavix for 21 days. She is to continue aspirin after that.
There was a transient tachycardia and it turned out to be atrial tachycardia. Was seen by cardiology who were going to arrange an outpatient Holter monitor on her. Had TTE showed normal EF 55 to 60%.
Consultants on board:
Cardiology-Dr. Tyron Albert
Vascular surgery-Setphon Pineda
Neurology-Madeleine Means
Discharge Plan
-
Patient Disposition: Home (Routine Discharge)
Discharge Diagnosis/Procedures: Acute/subacute left-sided cerebral ischemic infarct, likely embolic
Symptomatic L carotid stenosis s/p L CEA 05/29/24
Hypertension
Hyperlipidemia
Condition: Good
Diet: As tolerated and Low Sodium
Activity: No strenuous activity
Driving Restrictions: Not until seen by your Dr
Bathing Restrictions: OK to Shower
Activity Restrictions/Additional Instructions:
If you experience severe constant headache, weakness to an arm or leg, change in vision, trouble speaking or any stroke-like symptom, call 911 immediately
If you experience swelling, increased bruising, drainage from neck site, or fever, please call the office
Stand Alone Forms: DC Instr - Vascular OR
Referrals:
Reymundo Chang MD [Active] - in one to two months
(Significant smoking history, tobacco cessation recommended
Patient qualifies for lung cancer screening
Would recommend pulmonary follow-up)
Leilani Rodriguez PA-C [Specified Professional Personl] - 06/19/24 11:00 am (Vascular office follow up)
Tyron Albert MD [Active] - (Call on Sunday to get the Holter monitor set up.)
Madeleine Feng MD [Active] - in one month
UNKNOWN - PT DOES,NOT KNOW [Family Provider] -
Prescriptions:
New
acetaminophen 325 mg Tablet
650 mg PO Q4HPRN PRN (Reason: mild pain/TOSCANO/temp> 100.4F) Qty: 1 0RF
rosuvastatin 20 mg Tablet
20 mg PO QPM Qty: 30 0RF
clopidogrel [Plavix] 75 mg tablet
75 mg PO DAILY Qty: 20 0RF
Rx Instructions:
Take it for 20 days and stop
amlodipine [Norvasc] 2.5 mg tablet
2.5 mg PO DAILY Qty: 30 0RF
Continued
levothyroxine 137 mcg Tablet
137 mcg PO DAILY
aspirin 81 mg Tablet,Chewable
81 mg PO DAILY
Discharge Orders:
Discharge Patient (As Directed); Ordered 05/31/24
Ordered By: Yiim Aleman
Discharge Date and Time
Print Language: POLISH
[2024-05-31] MEDS: PLAVIX 75 MG PO (11:13)
[2024-05-31] MEDS: NORVASC 2.5 MG PO (11:13)
[2024-05-31 11:17] VITALS: BP 132/76
--- NOTE | 2024-05-31 11:45 | CM ---
Patient seen at bedside, plan is home with no needs. Son to transport home. CM will continue to follow for discharge planning needs.
Plan; home with no needs.
== END 2024-05-31 11:55 | disposition home or self-care (01) | DRG 37 ==
LOC: 2 SOUTH 17:33
PROVIDERS: Nurse Practitioner; Nurse Practitioner Acute Care; Physician Assistant; Student in an Organized Health Care Education/Training Program; ADMITTING PHYSICIAN Internal Medicine; ATTENDING PHYSICIAN Internal Medicine; CONSULT PHYSICIAN Otolaryngology; CONSULT PHYSICIAN Surgery Vascular Surgery; EMERGENCY PHYSICIAN Emergency Medicine; OTHER PHYSICIAN Internal Medicine Cardiovascular Disease; OTHER PHYSICIAN Internal Medicine Critical Care Medicine; OTHER PHYSICIAN Psychiatry & Neurology Neurology
PROC: 0CJS8ZZ Inspection of Larynx, Via Natural or Artificial Opening Endoscopic (ICD-10-PCS; 2024-05-28)
PROC: 03CJ0ZZ Extirpation of Matter from Left Common Carotid Artery, Open Approach (ICD-10-PCS; 2024-05-29)
PROC: 03UJ0KZ Supplement Left Common Carotid Artery with Nonautologous Tissue Substitute, Open Approach (ICD-10-PCS; 2024-05-29)
DX: I63.132 Cerebral infarction due to embolism of left carotid artery (principal); G93.5 Compression of brain; G81.91 Hemiplegia, unspecified affecting right dominant side; R64 Cachexia; I47.19 Other supraventricular tachycardia; N18.32 Chronic kidney disease, stage 3b; E11.22 Type 2 diabetes mellitus with diabetic chronic kidney disease; E78.00 Pure hypercholesterolemia, unspecified; E89.0 Postprocedural hypothyroidism; I12.9 Hypertensive chronic kidney disease with stage 1 through stage 4 chronic kidney disease, or unspecified chronic kidney disease; I65.21 Occlusion and stenosis of right carotid artery; R13.10 Dysphagia, unspecified; F17.210 Nicotine dependence, cigarettes, uncomplicated; Y84.2 Radiological procedure and radiotherapy as the cause of abnormal reaction of the patient, or of later complication, without mention of misadventure at the time of the procedure; Z68.24 Body mass index [BMI] 24.0-24.9, adult; Z79.82 Long term (current) use of aspirin; Z79.899 Other long term (current) drug therapy; Z85.818 Personal history of malignant neoplasm of other sites of lip, oral cavity, and pharynx; Z86.73 Personal history of transient ischemic attack (TIA), and cerebral infarction without residual deficits; Z92.21 Personal history of antineoplastic chemotherapy; Z92.3 Personal history of irradiation
CPT/HCPCS: 88304; 88311; 35301; 70450; 70496; 70498; 70551; 80048; 80053; 80061; 82962; 83735; 84439; 84443; 85025; 85027; 85610; 85730; 86850; 86900; 86901; 93005; 93306; 93880; 95941; 95955; 97162; 99285; 99406; Q9967

== ENCOUNTER → 2024-07-09 07:47 | Outpatient (REF) | payer MEDICARE, SELFPAY | LOC: RAD 07:47 | PROVIDERS: ATTENDING PHYSICIAN Physician Assistant; FAMILY PHYSICIAN Student in an Organized Health Care Education/Training Program | DX: I65.22 Occlusion and stenosis of left carotid artery (principal) | CPT/HCPCS: 93880 ==

== ENCOUNTER → 2024-07-10 09:38 | Outpatient (REF) | payer MEDICARE, SELFPAY | LOC: HWRAD 09:38 | PROVIDERS: ATTENDING PHYSICIAN Student in an Organized Health Care Education/Training Program | DX: Z87.891 Personal history of nicotine dependence (principal) | CPT/HCPCS: 71271 ==

== ENCOUNTER → 2024-07-25 09:03 | Outpatient (REF) | payer MEDICARE, SELFPAY ==
[2024-07-25 13:16] LABS: ALT (SGPT) 11 U/L (0-35); AST (SGOT) 17 U/L (14-36); Albumin 3.9 g/dl (3.5-5.0); Alkaline Phosphatase 61 U/L (38-126); Blood Urea Nitrogen 21 mg/dl (7-17); Calcium 9.3 mg/dl (8.4-10.2); Carbon Dioxide 27 mmol/L (22-30); Chloride 108 mmol/L (98-107); Glucose 134 mg/dl (70-99); HDL Cholesterol 52 mg/dl; LDL Cholesterol, Calculated 44 mg/dl; Potassium 4.8 mmol/L (3.5-5.1); Sodium 141 mmol/L (135-145); Total Bilirubin 0.8 mg/dl (0.2-1.3); Total Cholesterol 114 mg/dl (50-199); Total Protein 6.5 g/dl (6.3-8.2); Triglyceride 91 mg/dl (10-149); Very Low Density Lipoprotein 18 mg/dl (0-30); eGFR 53.06
[2024-07-25 13:27] LABS: TSH Reflex To Free T4 < 0.02 uIU/ml (0.47-4.68)
[2024-07-25 13:55] LABS: Free T4 2.24 ng/dl (0.78-2.19)
== END ==
LOC: HWLAB 09:03
PROVIDERS: ATTENDING PHYSICIAN Nurse Practitioner; FAMILY PHYSICIAN Student in an Organized Health Care Education/Training Program
DX: I10 Essential (primary) hypertension (principal); Z72.0 Tobacco use; I63.132 Cerebral infarction due to embolism of left carotid artery; E03.9 Hypothyroidism, unspecified; I47.19 Other supraventricular tachycardia; I65.23 Occlusion and stenosis of bilateral carotid arteries
CPT/HCPCS: 36415; 80053; 80061; 84439; 84443

== ENCOUNTER 2024-08-13 06:09 | Day surgery (SDC) | payer MEDICARE, SELFPAY ==
[2024-08-06 11:09] LABS: Hematocrit 43.6 % (37.0-47.0); Mean Corp Hgb Conc. 32.1 g/dL (33.0-37.0); Mean Corpuscular Hgb 27.2 pg (27.0-31.0); Mean Corpuscular Volume 84.8 fL (81.0-99.0); Mean Platelet Volume 10.2 fL (7.4-10.4); Platelet Count 262 10^3/uL (130-400); Red Blood Cell Count 5.14 10^6/uL (4.20-5.40); Red Cell Dist. Width 13.4 % (11.5-14.5); White Blood Cell Count 6.6 10^3/uL (4.8-10.8)
[2024-08-06 11:16] LABS: PT 12.6 Sec (11.4-14.6)
[2024-08-06 11:17] LABS: APTT 28.5 Sec (23.4-35.0)
[2024-08-06 11:55] LABS: Blood Urea Nitrogen 21 mg/dl (7-17); Calcium 9.8 mg/dl (8.4-10.2); Carbon Dioxide 26 mmol/L (22-30); Chloride 106 mmol/L (98-107); Glucose 119 mg/dl (70-99); Potassium 4.8 mmol/L (3.5-5.1); Sodium 141 mmol/L (135-145); eGFR 52.73
[2024-08-06 13:31] VITALS: BMI 22.8
[2024-08-13] VITALS (9 sets, daily range): BP systolic 41–121; BP diastolic 30–81; BMI 24.7
== END 2024-08-13 11:07 | disposition home or self-care (01) ==
LOC: SDS 06:09
PROVIDERS: ATTENDING PHYSICIAN Internal Medicine Critical Care Medicine; FAMILY PHYSICIAN Family Medicine
DX: J84.09 Other alveolar and parieto-alveolar conditions (principal); R94.2 Abnormal results of pulmonary function studies; R91.1 Solitary pulmonary nodule; T65.222A Toxic effect of tobacco cigarettes, intentional self-harm, initial encounter; F17.210 Nicotine dependence, cigarettes, uncomplicated; R93.89 Abnormal findings on diagnostic imaging of other specified body structures; I10 Essential (primary) hypertension; C01 Malignant neoplasm of base of tongue
CPT/HCPCS: 31629; 31627; 31623; 31652; 31624; 31654; 31628; 88305; 71045; 76000; 80048; 85027; 85610; 85730; 87015; 87070; 87102; 87116; 87205; 88112; 88333; 88341; 88342; 94640

== ENCOUNTER → 2024-09-26 11:11 | Outpatient (REF) | payer MEDICARE, SELFPAY | LOC: HWLAB 11:11 | PROVIDERS: ATTENDING PHYSICIAN Student in an Organized Health Care Education/Training Program | DX: E03.9 Hypothyroidism, unspecified (principal) | CPT/HCPCS: 84439; 84443 ==

== ENCOUNTER → 2024-10-31 11:38 | Outpatient (REF) | payer MEDICARE, SELFPAY | LOC: RAD 11:38 | PROVIDERS: ATTENDING PHYSICIAN Nurse Practitioner Adult Health; FAMILY PHYSICIAN Student in an Organized Health Care Education/Training Program | DX: R91.1 Solitary pulmonary nodule (principal); R59.0 Localized enlarged lymph nodes | CPT/HCPCS: 71250 ==

== ENCOUNTER → 2024-11-27 09:58 | Outpatient (REF) | payer MEDICARE, SELFPAY | LOC: HWLAB 09:58 | PROVIDERS: ATTENDING PHYSICIAN Student in an Organized Health Care Education/Training Program | DX: E03.9 Hypothyroidism, unspecified (principal) | CPT/HCPCS: 36415; 84439; 84443 ==

== ENCOUNTER → 2025-01-26 13:05 | Outpatient (REF) | payer MEDICARE, SELFPAY | LOC: RAD 13:05 | PROVIDERS: ATTENDING PHYSICIAN Surgery Vascular Surgery; FAMILY PHYSICIAN Student in an Organized Health Care Education/Training Program | DX: I65.22 Occlusion and stenosis of left carotid artery (principal) | CPT/HCPCS: 93880 ==